=== PATIENT | female | born 1985 ===

== ENCOUNTER 2017-05-22 12:20 | Inpatient (IN) | payer SELFPAY ==
--- NOTE | 2017-05-22 12:35 | ED PDOC ---
HPI: Abdomen Time Seen by Provider: 05/22/17 12:35 Chief Complaint (Nursing): Abdominal Pain Chief Complaint (Provider): abdominal pain History Per: Patient Additional Complaint(s): 32 year old female with history of elevate triglycerides presents to ED with upper abd pain and nausea that started this morning. Patient denies any vomiting or diarrhea. She states she had tea and fruit this morning and developed pain and nausea soon after. Patient denies any chest pain, SOB or STANLEY , no fever or chills. She rates current pain as 7/10. Patient reports history of pancreatitis in the past. She denies any etoh use. Past Medical History Reviewed: Historical Data, Nursing Documentation, Vital Signs Vital Signs: Last Vital Signs Temp 99.2 F 05/23/17 12:52 Pulse 105 H 05/23/17 14:00 Resp 98 H 05/23/17 14:00 BP 108/65 05/23/17 14:00 Pulse Ox 100 05/23/17 14:25 - Medical History PMH: Back Problems, Hyperlipidemia, Pancreatitis - Surgical History Surgical History: (x 2) - Family History Family History: States: No Known Family Hx - Living Arrangements Living Arrangements: With Family - Social History Current smoker - smoking cessation education provided: No Alcohol: None Drugs: Denies - Home Medications Home Medications: Ambulatory Orders Medication Instructions Recorded Gemfibrozil [Gemfibrozil] 600 mg PO BID 05/22/17 [place]-3 Fatty Acids/Fish Oil 1 cap PO BID 05/22/17 [[place]-3 1,000 mg Softgel] - Allergies Allergies/Adverse Reactions: Allergies Allergy/AdvReac Type Severity Reaction Status Date / Time No Known Allergies Allergy Verified 07/04/14 16:48 Review of Systems ROS Statement: Except As Marked, All Systems Reviewed And Found Negative Constitutional: Negative for: Fever, Chills Cardiovascular: Negative for: Chest Pain Respiratory: Negative for: Cough Gastrointestinal: Positive for: Nausea, Abdominal Pain. Negative for: Vomiting , Diarrhea, Constipation Genitourinary Female: Negative for: Dysuria Physical Exam - Reviewed Nursing Documentation Reviewed: Yes Vital Signs Reviewed: Yes - Physical Exam Appears: Positive for: Well, Non-toxic, No Acute Distress Skin: Negative for: Rash Eye Exam: Positive for: Normal appearance Cardiovascular/Chest: Positive for: Regular Rate, Rhythm Respiratory: Positive for: Normal Breath Sounds Gastrointestinal/Abdominal: Positive for: Soft, Tenderness (epigastric, RUQ). Negative for: Distended, Guarding, Rebound Back: Negative for: L CVA Tenderness, R CVA Tenderness Extremity: Positive for: Normal ROM. Negative for: Pedal Edema Neurologic/Psych: Positive for: Alert, Oriented - Laboratory Results Result Diagrams: 05/23/17 05:00 05/23/17 05:00 Urine POC: Negative Urine dip results: Negative for: Leukocyte Esterase, Blood, Nitrate, Ketones, Glucose, Bilirubin, Protein - ECG Interpretation Of ECG: NSR 96 bpm, no acute finding, reviewed by PA and ED attending. O2 Sat by Pulse Oximetry: 100 Pulse Ox Interpretation: Normal - Other Rad Abd US X-Ray: Read By Radiologist X-Ray Interpretation: Fatty liver Medical Decision Making Medical Decision Makin32 year old with abd pain and nausea Plan: CBC CMP Lipase Urine test and dip IVF IV zofran IV toradol Abd US K is elevated at 5.5, sample hemolyzed, repeat ordered, repeat is 6.0. Lab did not inform ED that second sample was also hemolyzed. 3rd K was ordered and confirmed at 5.4, not hemolyzed. Patient was treated for hyperkalemia by Dr. Jeffrey, ED attending. Lipase is 3087 consistent with pancreatitis. PMD is [facility], case was d/w family practice resident, patient will be admitted to telemetry. Patient is aware of and agrees with admission. CT abd and pelvis with oral and IV contrast ordered. Case was d/w Dr. Davila GI conveyor technician who will see patient while she is admitted. Disposition - Clinical Impression Clinical Impression: Pancreatitis, Hyperkalemia - Patient ED Disposition Is Patient to be Admitted: Yes - Disposition Disposition Time: 14:28 Condition: GUARDED - Pt Status Changed To: Hospital Disposition Of: Inpatient - Admit Certification Admit to Inpatient:: After my assessment, the patient will require hospitalization for at least two midnights. This is because of the severity of symptoms shown, intensity of services needed, and/or the medical risk in this patient being treated as an outpatient. - POA Present On Arrival: None Results - Lab Results Lab Results: 05/22/17 05/22/17 05/22/17 14:30 14:30 13:25 WBC 17.4 H D RBC 4.43 Hgb 12.9 Hct 35.5 MCV 80.2 L D MCH 29.1 MCHC 36.3 RDW 15.0 H Plt Count 257 MPV 11.6 Neut % (Auto) 85.5 H Lymph % (Auto) 9.1 L [place] % (Auto) 4.4 Eos % (Auto) 0.5 Baso % (Auto) 0.5 Neut # 14.9 H Lymph # 1.6 [place] # 0.8 Eos # 0.1 Baso # 0.1 Neutrophils % (Manual) 84 H Band Neutrophils % 1 Lymphocytes % (Manual) 8 L Monocytes % (Manual) 6 Eosinophils % (Manual) 1 Platelet Estimate Normal Hypochromasia (manual) Slight Anisocytosis (manual) Slight Microcytosis (manual) Slight Sodium 133 134 Potassium 6.0 H 5.5 H Chloride 104 103 Carbon Dioxide 19 L 20 L Anion Gap 16 17 BUN 9 10 Creatinine 0.4 L 0.4 L Est GFR ( Amer) > 60 > 60 Est GFR (Non-Af Amer) > 60 > 60 Random Glucose 100 107 H Calcium 7.6 L 8.3 L Total Bilirubin 2.5 H 2.2 H AST 74 H 67 H D ALT < 6 L 7 L D Alkaline Phosphatase 77 82 Total Protein 8.8 H 9.0 H Albumin 4.7 4.7 Globulin 4.2 H 4.3 H Albumin/Globulin Ratio 1.1 1.1 Lipase 3087 H
[2017-05-22] MEDS ORDERED: Sodium Chloride 0.9% 1,000 ML IV STA ×2 (12:44→15:26)
[2017-05-22] MEDS ORDERED: Alum-Mag Hydrox-Simethicone Susp (30 mL) PO STA (12:45)
[2017-05-22 13:43] LABS: ALB/GLOB RATIO 1.1 (1.0-2.1); ALKALINE PHOSPHATASE 82 U/L (38-126); AST/SGOT 67 U/L (14-36); BILIRUBIN,TOTAL 2.2 mg/dl (0.2-1.3); BLOOD UREA NITROGEN 10 mg/dl (7-17); CALCIUM 8.3 mg/dL (8.4-10.2); CARBON DIOXIDE 20 mmol/L (22-30); CHLORIDE 103 mmol/L (98-107); GFR AFRICAN-AMERICAN > 60; GLUCOSE,RANDOM 107 mg/dL (65-105); POTASSIUM 5.5 MMOL/L (3.6-5.0); SODIUM 134 mmol/l (132-148)
[2017-05-22 13:51] LABS: LIPASE 3087 U/L (23-300)
[2017-05-22 14:39] LABS: ALT/SGPT 7 U/L (9-52)
[2017-05-22 14:41] LABS: BASO # 0.1 K/uL (0.0-0.2); BASO % 0.5 % (0.0-2.0); EOS # 0.1 K/uL (0.0-0.7); EOS % 0.5 % (0.0-4.0); HEMATOCRIT 35.5 % (34.0-47.0); LYMPH # 1.6 K/uL (1.0-4.3); LYMPH % 9.1 % (20.0-40.0); MEAN CELL VOLUME 80.2 fl (81.0-99.0); MEAN CORPUSCULAR HEMOGLOBIN 29.1 pg (27.0-31.0); MEAN CORPUSCULAR HGB CONC 36.3 g/dL (33.0-37.0); MEAN PLATELET VOLUME 11.6 fl (7.2-11.7); MONO # 0.8 K/uL (0.0-0.8); MONO % 4.4 % (0.0-10.0); NEUT # 14.9 K/uL (1.8-7.0); NEUT % 85.5 % (50.0-75.0); NRBC % 0.1 % (0.0-0.0); PLATELET COUNT 257 K/uL (130-400); WHITE BLOOD COUNT 17.4 K/uL (4.8-10.8)
[2017-05-22 15:00] LABS: ALB/GLOB RATIO 1.1 (1.0-2.1); ALKALINE PHOSPHATASE 77 U/L (38-126); AST/SGOT 74 U/L (14-36); BILIRUBIN,TOTAL 2.5 mg/dl (0.2-1.3); BLOOD UREA NITROGEN 9 mg/dl (7-17); CALCIUM 7.6 mg/dL (8.4-10.2); CARBON DIOXIDE 19 mmol/L (22-30); CHLORIDE 104 mmol/L (98-107); GFR AFRICAN-AMERICAN > 60; GLUCOSE,RANDOM 100 mg/dL (65-105); SODIUM 133 mmol/l (132-148); TOTAL PROTEIN 8.8 G/DL (6.3-8.2)
[2017-05-22 15:16] LABS: ALT/SGPT < 6 U/L (9-52)
[2017-05-22] MEDS ORDERED: Sod Polystyrene Sulf 15 gm/60 ml Oral Susp PO STA (15:25)
[2017-05-22] MEDS ORDERED: Dextrose 50% SYRINGE Inj (50 ml) IVP ONE (15:25)
[2017-05-22] MEDS ORDERED: Insulin Regular 100 units/ml IV STA (15:25)
[2017-05-22] MEDS ORDERED: Albuterol 0.083% Inhal Sol (2.5 mg/3 mL) UD INH STA (15:26)
--- NOTE | 2017-05-22 15:32 | US ---
HISTORY: upper abd pain, nausea COMPARISON: None. TECHNIQUE: Sonographic evaluation of the abdomen. FINDINGS: LIVER: Measures approximately 17.2 cm in CC dimension. . N smooth contour though increased echogenicity of the liver parenchyma consistent with fatty infiltration however other infiltrative hepatocellular disease process not completely excluded. . . No mass. No intrahepatic bile duct dilatation. GALLBLADDER: Unremarkable. No gallstones. COMMON BILE DUCT: Measures 3.6 mm. No stones. No dilatation. PANCREAS: The pancreatic tail is incompletely visualized due to body habitus and bowel gas however the visualized portions of the pancreas appear grossly unremarkable. . RIGHT KIDNEY: Measures approximately 10.4 x 5.7 x 4.4cm. Normal echogenicity. No calculus, mass, or hydronephrosis. LEFT KIDNEY: Measures approximately 9.9 x 5.2 x 5.7cm. Normal echogenicity. No calculus, mass, or hydronephrosis. SPLEEN: Normal in size measuring approximately 9.7 . Normal. Tiny d contour. No mass. AORTA: No aneurysmal dilatation. IVC: Unremarkable. OTHER FINDINGS: None. IMPRESSION: Findings suggest mild fatty hepatic infiltration however other infiltrative hepatocellular disease process not excluded
[2017-05-22] MEDS ORDERED: Sod Polystyrene Sulf 15 gm/60 ml Oral Susp ONE (15:45)
[2017-05-22] MEDS ORDERED: Dextrose 50% SYRINGE Inj (50 ml) ONE (15:45)
[2017-05-22] MEDS ORDERED: Albuterol 0.083% Inhal Sol (2.5 mg/3 mL) UD ONE (15:45)
[2017-05-22] MEDS ORDERED: Insulin Regular 100 units/ml ONE (15:46)
[2017-05-22] MEDS ORDERED: Iohexol 240 (50 ml) PO ONE (16:33)
[2017-05-22] MEDS ORDERED: Sodium Chloride 0.9% 1,000 ML IV SCH ×2 (16:45)
[2017-05-22 17:05] LABS: ALCOHOL SERUM < 10 mg/dl (0-10); CHOLESTEROL 261 mg/dL (0-199)
[2017-05-22 17:11] LABS: POTASSIUM 5.4 MMOL/L (3.6-5.0)
--- NOTE | 2017-05-22 17:16 | CP.PCM.HP ---
History of Present Illness - History of Present Illness History of Present Illness: 32 year old female with hx of hypertriglyceridemia presented for abdominal pain since this 8:00AM this morning, nausea for past 3 days. Reports severe abdominal pain midepigastric pain that radiates to left flank. Pain began after she drank some tea. She had one episode of vomiting in the ER after PO contrast was administered. She reports this has happened in the past. She was previously being treated for her HLD with fenofibrate, but patient discontinued medication due to GI upset and has been taking only omega 3. No other complaints. She has family bedside. Denies family hx of HLD. She reports hx of irregular menses, LMP beginning of February. PMH: Hypertriglyceridemia x 15 years Medications: [place]-3 Allergies: NKDA Social: denies smoking, etoh, illicit drug use Surgical hx: x 2 [employer]: LMP beginning of February, 1 male sexual partner. Uses condoms for contraception. ED Course: VS: T:99.1, HR: 86, BP:144/91, O2:100 on RA CBC: 17.4 > 12.9 / 35.5 < 257 CMP: K+: 6.0, repeat 5.4, AST/ALT: 74/<6 Calcium: 7.6 Lipase :3087 Triglycerides: 2103 Abd ultrasound: mild hepatic fatty infiltration CT ABD/PELVIS pending NS x 2L boluses Albuterol, insulin 5 units, kayexelate toradol, morphine Present on Admission - Present on Admission Any Indicators Present on Admission: No Review of Systems - Constitutional Constitutional: absent: Chills, Fever, Headache, Weight Loss - EENT Eyes: absent: Change in Vision, Discharge, Pain - Cardiovascular Cardiovascular: absent: Chest Pain, Diaphoresis, Dyspnea, Edema, Orthopnea, Palpitations, Pedal Edema - Respiratory Respiratory: absent: Cough, Dyspnea - Gastrointestinal Gastrointestinal: Abdominal Pain, Nausea, Vomiting. absent: Constipation, Diarrhea, Hematemesis - Genitourinary Genitourinary: Flank Pain (left sided). absent: Difficulty Urinating, Dysuria Past Patient History - Infectious Disease Hx of Infectious Diseases: None - Tetanus Immunizations Tetanus Immunization: Unknown - Past Medical History & Family History Past Medical History?: Yes - Past Social History Alcohol: None Drugs: Denies - CARDIAC Hx Cardiac Disorders: Yes (high cholesterol) - PULMONARY Hx Respiratory Disorders: No - NEUROLOGICAL Hx Neurological Disorder: No - HEENT Hx HEENT Problems: No - RENAL Hx Chronic Kidney Disease: No - ENDOCRINE/METABOLIC Hx Endocrine Disorders: No - HEMATOLOGICAL/ONCOLOGICAL Hx Blood Disorders: No - INTEGUMENTARY Hx Dermatological Problems: No - MUSCULOSKELETAL/RHEUMATOLOGICAL Hx Musculoskeletal Disorders: No Hx Falls: No - GASTROINTESTINAL Hx Pancreatitis: Yes - GENITOURINARY/GYNECOLOGICAL Hx Genitourinary Disorders: No - PSYCHIATRIC Hx Psychophysiologic Disorder: No Hx Substance Use: No - SURGICAL HISTORY Hx Section: Yes (x2) - ANESTHESIA Hx Anesthesia: Yes Hx Anesthesia Reactions: No Hx Malignant Hyperthermia: No Meds Allergies/Adverse Reactions: Allergies Allergy/AdvReac Type Severity Reaction Status Date / Time No Known Allergies Allergy Verified 07/04/14 16:48 Physical Exam - Constitutional Appears: In Acute Distress (mild distress secondary to pain) - Head Exam Head Exam: ATRAUMATIC, NORMAL INSPECTION, NORMOCEPHALIC - Eye Exam Eye Exam: Scleral icterus (mild) - ENT Exam ENT Exam: Mucous Membranes Moist, Normal Exam - Neck Exam Neck exam: Positive for: Normal Inspection - Respiratory Exam Respiratory Exam: Clear to Auscultation Bilateral, NORMAL BREATHING PATTERN - Cardiovascular Exam Cardiovascular Exam: REGULAR RHYTHM, +S1, +S2. absent: Tachycardia - GI/Abdominal Exam GI & Abdominal Exam: Diminished Bowel Sounds, Guarding, Normal Bowel Sounds, Soft, Tenderness (midepigastric and left upper quadrant). absent: Distended, Rebound - Extremities Exam Extremities exam: Negative for: pedal edema, tenderness - Neurological Exam Neurological exam: Alert, CN II-XII Intact, Oriented x3 - Psychiatric Exam Psychiatric exam: Normal Affect, Normal Mood - Skin Skin Exam: Dry, Intact, Normal Color Results - Vital Signs Recent Vital Signs: Last Vital Signs Temp 99.1 F 05/22/17 16:53 Pulse 86 05/22/17 16:53 Resp 18 05/22/17 16:53 BP 144/91 H 05/22/17 16:53 Pulse Ox 100 05/22/17 13:23 - Labs Result Diagrams: 05/22/17 14:30 05/22/17 16:45 Labs: Laboratory Results - last 24 hr 05/22/17 05/22/17 05/22/17 13:25 14:30 14:30 WBC 17.4 H D RBC 4.43 Hgb 12.9 Hct 35.5 MCV 80.2 L D MCH 29.1 MCHC 36.3 RDW 15.0 H Plt Count 257 MPV 11.6 Neut % (Auto) 85.5 H Lymph % (Auto) 9.1 L [place] % (Auto) 4.4 Eos % (Auto) 0.5 Baso % (Auto) 0.5 Neut # 14.9 H Lymph # 1.6 [place] # 0.8 Eos # 0.1 Baso # 0.1 Sodium 134 133 Potassium 5.5 H 6.0 H Chloride 103 104 Carbon Dioxide 20 L 19 L Anion Gap 17 16 BUN 10 9 Creatinine 0.4 L 0.4 L Est GFR ( Amer) > 60 > 60 Est GFR (Non-Af Amer) > 60 > 60 Random Glucose 107 H 100 Calcium 8.3 L 7.6 L Total Bilirubin 2.2 H 2.5 H AST 67 H D 74 H ALT 7 L D < 6 L Alkaline Phosphatase 82 77 Total Protein 9.0 H 8.8 H Albumin 4.7 4.7 Globulin 4.3 H 4.2 H Albumin/Globulin Ratio 1.1 1.1 Lipase 3087 H Assessment & Plan (1) Abdominal pain Assessment and Plan: 32 year old female with hypertriglyceidemia admitted for abdominal pain with PO intolerance likely 2' to acute pancreatitis. Patient is afebrile, has leukocytosis of 17.4 with elevated lipase, >3000 and triglycerides > 2100. Will continue with aggressive IVF. Monitor electrolytes closely. GI consulted: Dr. Davila. Brandon critera on admission : 1 BISAP score: 0 [place] II: pending lactate -NPO -IVF -VBG ordered -Morphine for pain -zofran for nausea -f/u abdomen/pelvis ct with po & iv contrast Status: Acute (2) Hypertriglyceridemia Assessment and Plan: likely etiology of acute pancreatitis -will need PO treatment once pancreatitis resolves to prevent future episode and lower risk of CAD -dietary referral Status: Chronic Priority: High (3) Overweight (BMI 25.0-29.9) Assessment and Plan: dietary education, lifestyle modification Status: Chronic (4) DVT prophylaxis Assessment and Plan: lovenox 40mg Status: Acute
[2017-05-22 17:28] LABS: EOSINOPHIL 1 % (0-7); NEUTROPHIL 84 % (42-75); TOTAL CELLS COUNTED 100
[2017-05-22] MEDS: Sodium Chloride 0.9% 1,000 ML IV SCH ×2 (18:06→22:30)
[2017-05-22] MEDS ORDERED: Iohexol 240 (50 ml) ONE (18:26)
[2017-05-22] MEDS ORDERED: Sodium Chloride 0.9% 50 ML IV ONE (19:39)
[2017-05-22] MEDS ORDERED: Iohexol 300 100 ML IJ ONE (19:39)
--- NOTE | 2017-05-22 21:04 | CT ---
EXAM: CT Abdomen and Pelvis With Intravenous Contrast CLINICAL HISTORY: 32 years old, female; Pain; Abdominal pain; Localized; Upper; Prior surgery; Surgery date: 6+ months; Surgery type: 2 c-sections; Patient HX: HX of pancreatitis; Additional info: Abd pain, elevated lipase. Sent copy of labs TECHNIQUE: Axial computed tomography images of the abdomen and pelvis with intravenous contrast. All CT scans at this facility use one or more dose reduction techniques, viz.: automated exposure control; ma/kV adjustment per patient size (including targeted exams where dose is matched to indication; i.e. head); or iterative reconstruction technique. Coronal and sagittal reformatted images were created and reviewed. CONTRAST: 90 mL of [id number] administered intravenously. COMPARISON: No relevant prior studies available. FINDINGS: Lower thorax: Mild atelectasis. ABDOMEN: Liver: Fatty infiltration. Gallbladder and bile ducts: No calcified stones. No ductal dilation. Pancreas: Moderate stranding/fluid about pancreas. No definite pancreatic necrosis. No ductal dilation. Spleen: No splenomegaly. Adrenals: No mass. Kidneys and ureters: No mass. No hydronephrosis. Stomach and bowel: No definite mural thickening. No obstruction. Appendix: Normal caliber. No inflammation. PELVIS: Bladder: Unremarkable. Reproductive: Unremarkable as visualized. ABDOMEN and PELVIS: Intraperitoneal space: Fluid extension along stomach, LEFT paracolic gutter without discrete peripherally enhancing collection. Trace free fluid within pelvis. No free air. Bones/joints: No acute fracture. Soft tissues: Unremarkable. Vasculature: Patent splenic artery and vein. No aneurysm. Lymph nodes: No pathologically enlarged lymph nodes. IMPRESSION: 1. Acute pancreatitis. 2. Incidental/non-acute findings are described above.
[2017-05-22 21:52] LABS: VENOUS BLOOD GAS BASE EXCESS -0.4 mmol/L (0.0-2.0); VENOUS BLOOD GAS PCO2 38 mmHg (40-60); VENOUS BLOOD PH 7.41 (7.32-7.43)
[2017-05-23] MEDS: Sodium Chloride 0.9% 1,000 ML IV SCH ×2 (01:01→04:37)
--- NOTE | 2017-05-23 06:41 | CP.PCM.PN ---
Subjective - Date & Time of Evaluation Date of Evaluation: 05/23/17 Time of Evaluation: 06:45 - Subjective Subjective: Overnight: patient continued to have nausea, reports 1 episode of vomiting. Patient sleeping upon entry to room. Still has moderate to severe pain and nausea. She denies fever/chills, chest pain, dyspnea, diarrhea or pedal edema. She is currently on NS @ 300cc/hr, will d/c NS and start D5/LR @ 300cc/hr with IV insulin drip. Case d/w lock stitch channeler. Will transfer to ICU. GI and endocrine consult. Objective - Vital Signs/Intake and Output Vital Signs (last 24 hours): Temp Pulse Resp BP Pulse Ox 98.9 F 99 H 18 99/66 L 97 05/23/17 05:00 05/23/17 05:00 05/23/17 05:00 05/23/17 05:00 05/23/17 05:00 - Medications Medications: Current Medications Acetaminophen (Tylenol 650 Mg Supp) 650 mg WI Q6 PRN PRN Reason: Fever >100.4 F Enoxaparin Sodium (Lovenox) 40 mg SC DAILY KATEY PRN Reason: Protocol Famotidine (Pepcid) 20 mg PO BID KATEY Sodium Chloride (Sodium Chloride 0.9%) 1,000 mls @ 999 mls/hr IV .Q1H1M [facility] Stop: 05/23/17 16:39 Sodium Chloride (Sodium Chloride 0.9%) 1,000 mls @ 300 mls/hr IV .Q3H20M [facility] Stop: 05/23/17 16:39 Last Admin: 05/23/17 04:37 Dose: 300 mls/hr Morphine Sulfate (Morphine) 2 mg IVP Q4 PRN PRN Reason: Pain, moderate (4-7) Morphine Sulfate (Morphine) 4 mg IVP Q4 PRN PRN Reason: Pain, severe (8-10) Last Admin: 05/22/17 22:26 Dose: 4 mg Ondansetron HCl (Zofran Inj) 4 mg IVP Q6 PRN PRN Reason: Nausea/Vomiting Last Admin: 05/23/17 01:50 Dose: 4 mg - Labs Labs: Most Recent Lab Values WBC 13.4 K/uL (4.8-10.8) H 05/23/17 05:00 RBC 4.15 Mil/uL (3.80-5.20) 05/23/17 05:00 Hgb 10.9 g/dL (12.0-16.0) L D 05/23/17 05:00 Hct 33.1 % (34.0-47.0) L 05/23/17 05:00 MCV 79.8 fl (81.0-99.0) L 05/23/17 05:00 MCH 26.3 pg (27.0-31.0) L 05/23/17 05:00 MCHC 32.9 g/dL (33.0-37.0) L 05/23/17 05:00 RDW 15.1 % (11.5-14.5) H 05/23/17 05:00 Plt Count 195 K/uL (130-400) 05/23/17 05:00 MPV 11.6 fl (7.2-11.7) 05/22/17 14:30 Neut % (Auto) 85.5 % (50.0-75.0) H 05/22/17 14:30 Lymph % (Auto) 9.1 % (20.0-40.0) L 05/22/17 14:30 [place] % (Auto) 4.4 % (0.0-10.0) 05/22/17 14:30 Eos % (Auto) 0.5 % (0.0-4.0) 05/22/17 14:30 Baso % (Auto) 0.5 % (0.0-2.0) 05/22/17 14:30 Neut # 14.9 K/uL (1.8-7.0) H 05/22/17 14:30 Lymph # 1.6 K/uL (1.0-4.3) 05/22/17 14:30 [place] # 0.8 K/uL (0.0-0.8) 05/22/17 14:30 Eos # 0.1 K/uL (0.0-0.7) 05/22/17 14:30 Baso # 0.1 K/uL (0.0-0.2) 05/22/17 14:30 Neutrophils % (Manual) 84 % (42-75) H 05/22/17 14:30 Band Neutrophils % 1 % (0-2) 05/22/17 14:30 Lymphocytes % (Manual) 8 % (20-50) L 05/22/17 14:30 Monocytes % (Manual) 6 % (0-10) 05/22/17 14:30 Eosinophils % (Manual) 1 % (0-7) 05/22/17 14:30 Platelet Estimate Normal (NORMAL) 05/22/17 14:30 Hypochromasia (manual) Slight 05/22/17 14:30 Anisocytosis (manual) Slight 05/22/17 14:30 Microcytosis (manual) Slight 05/22/17 14:30 pO2 48 mm/Hg (30-55) 05/22/17 18:29 VBG pH 7.41 (7.32-7.43) 05/22/17 18:29 VBG pCO2 38 mmHg (40-60) L 05/22/17 18:29 VBG HCO3 24.2 mmol/L 05/22/17 18:29 VBG Total CO2 25.3 mmol/L (22-28) 05/22/17 18:29 VBG O2 Sat (Calc) 88.3 % (40-65) H 05/22/17 18:29 VBG Base Excess -0.4 mmol/L (0.0-2.0) L 05/22/17 18:29 VBG Potassium 3.3 mmol/L (3.6-5.2) L 05/22/17 18:29 Sodium 131.0 mmol/L (132-148) L 05/22/17 18:29 Chloride 103.0 mmol/L (98-107) 05/22/17 18:29 Glucose 122 mg/dL (65-105) H 05/22/17 18:29 Lactate 1.4 mmol/L (0.7-2.1) 05/22/17 18:29 FiO2 21.0 % 05/22/17 18:29 Sodium 130 mmol/l (132-148) L 05/23/17 05:00 Potassium 3.4 MMOL/L (3.6-5.0) L 05/23/17 05:00 Chloride 104 mmol/L (98-107) 05/23/17 05:00 Carbon Dioxide 20 mmol/L (22-30) L 05/23/17 05:00 Anion Gap 9 (10-20) L 05/23/17 05:00 BUN 5 mg/dl (7-17) L 05/23/17 05:00 Creatinine 0.4 mg/dL (0.7-1.2) L 05/23/17 05:00 Est GFR ( Amer) > 60 05/23/17 05:00 Est GFR (Non-Af Amer) > 60 05/23/17 05:00 POC Glucose (mg/dL) 91 mg/dL (65-110) 05/23/17 10:06 Random Glucose 125 mg/dL (65-105) H 05/23/17 05:00 Calcium 6.6 mg/dL (8.4-10.2) L 05/23/17 05:00 Total Bilirubin 0.8 mg/dl (0.2-1.3) 05/23/17 05:00 AST 18 U/L (14-36) 05/23/17 05:00 ALT 24 U/L (9-52) 05/23/17 05:00 Alkaline Phosphatase 54 U/L (38-126) 05/23/17 05:00 Total Protein 6.3 G/DL (6.3-8.2) 05/23/17 05:00 Albumin 3.1 g/dL (3.5-5.0) L D 05/23/17 05:00 Globulin 3.2 gm/dL (2.2-3.9) 05/23/17 05:00 Albumin/Globulin Ratio 1.0 (1.0-2.1) 05/23/17 05:00 Triglycerides 2103 mg/DL (0-149) H 05/22/17 16:45 Cholesterol 261 mg/dL (0-199) H 05/22/17 16:45 LDL Cholesterol Direct 33 mg/dL (0-129) 05/22/17 16:45 HDL Cholesterol 17 MG/DL (30-70) L 05/22/17 16:45 Lipase 3087 U/L (23-300) H 05/22/17 13:25 Venous Blood Potassium 3.3 mmol/L (3.6-5.2) L 05/22/17 18:29 Alcohol, Quantitative < 10 mg/dl (0-10) 05/22/17 16:45 - Constitutional Appears: In Acute Distress (moderate distress 2' to pain) - Head Exam Head Exam: ATRAUMATIC, NORMAL INSPECTION, NORMOCEPHALIC - Eye Exam Eye Exam: EOMI, Normal appearance, PERRL - ENT Exam ENT Exam: Mucous Membranes Moist, Normal Exam - Respiratory Exam Respiratory Exam: Clear to Ausculation Bilateral - Cardiovascular Exam Cardiovascular Exam: REGULAR RHYTHM, +S1, +S2. absent: Murmur - GI/Abdominal Exam GI & Abdominal Exam: Soft, Tenderness (left upper quadrant/flank), Diminished Bowel Sounds. absent: Distended, Guarding - Extremities Exam Extremities Exam: Full ROM. absent: Pedal Edema - Neurological Exam Neurological Exam: Alert, Awake, CN II-XII Intact, Oriented x3. absent: Motor Sensory Deficit - Psychiatric Exam Psychiatric exam: Normal Affect, Normal Mood - Skin Skin Exam: Dry, Intact Assessment and Plan (1) Abdominal pain Assessment & Plan: 32 year old female with hypertriglyceidemia admitted for abdominal pain with PO intolerance likely 2' to acute pancreatitis. Patient is remains afebrile, leukocytosis trending down. On admission : Lipase > 3000 and triglycerides > 2100. Continue with agressive ivf and start insulin drip. Patient is hyponatremic, hypokalemic, hypocalcemic. Will get EKG, d/c NS start d5/LR. GI consulted: Dr. Davila. Endorcrine consulted: Dr. Sánchez Taylor critera on admission : 1 BISAP score: 0 [place] II: 6 Plan: -NPO & IVF (D5/LR @300cc/hr), insulin drip -Morphine for pain -zofran for nausea -transfer to ICU -trend TG, monitor blood glucose closely, monitor electrolytes Status: Acute (2) Hypertriglyceridemia Assessment & Plan: etiology of acute pancreatitis -insulin drip with D5/LR to further decrease TG, monitor closely -start fibrate and clear liquid diet as per GI -dietary referral Status: Chronic (3) Overweight (BMI 25.0-29.9) Assessment & Plan: dietary education, lifestyle modification Status: Chronic (4) Transaminitis Status: Resolved (5) Hypokalemia Status: Acute (6) Hypocalcemia Status: Acute (7) Hyponatremia Status: Acute (8) DVT prophylaxis Assessment & Plan: lovenox 40mg Status: Acute
[2017-05-23 07:11] LABS: ALKALINE PHOSPHATASE 54 U/L (38-126); ALT/SGPT 24 U/L (9-52); AST/SGOT 18 U/L (14-36); BILIRUBIN,TOTAL 0.8 mg/dl (0.2-1.3); BLOOD UREA NITROGEN 5 mg/dl (7-17); CALCIUM 6.6 mg/dL (8.4-10.2); CARBON DIOXIDE 20 mmol/L (22-30); CHLORIDE 104 mmol/L (98-107); GFR AFRICAN-AMERICAN > 60; GLUCOSE,RANDOM 125 mg/dL (65-105); HEMATOCRIT 33.1 % (34.0-47.0); MEAN CELL VOLUME 79.8 fl (81.0-99.0); MEAN CORPUSCULAR HEMOGLOBIN 26.3 pg (27.0-31.0); MEAN CORPUSCULAR HGB CONC 32.9 g/dL (33.0-37.0); POTASSIUM 3.4 MMOL/L (3.6-5.0); RED CELL DISTRIBUTION WIDTH 15.1 % (11.5-14.5); SODIUM 130 mmol/l (132-148); TOTAL PROTEIN 6.3 G/DL (6.3-8.2); WHITE BLOOD COUNT 13.4 K/uL (4.8-10.8)
[2017-05-23] MEDS ORDERED: Lactated Ringer's 1,000 ML IV SCH (07:30)
[2017-05-23] MEDS: Enoxaparin 40 mg Syringe SC SCH (08:50)
--- NOTE | 2017-05-23 09:04 | CP.PCM.CON ---
<Dianna Monet - Last Filed: 05/23/17 09:43> History of Present Illness - History of Present Illness History of Present Illness: GI Fellow PGY4 Consult Note This is a 32yF with a pmhx of hypertriglyceridemia induced pancreatitis pw co nausea for three days and epigastric abdominal pain that started yesterday and was radiating through mid-back and down to left flank. Pt had 3 episodes of emesis since admission and continues to have significant abdominal pain 06/02 requiring pain medication for relief. Pt reports this is her third hospital admission for acute pancreatitis with prior episodes in 2001 and 2013. She was prescribed fenofibrate in 2013 and reports she was taking it until one month ago and is only on omega 3 supplement because taking fenobrite on an empty stomach was causing her abdominal discomfort and pain. Also there is a family hx of hypertriglyceridemia induced pancreatitis in her mother. In the ER pt was found to have a lipase [address] A/P showing moderate pancreatic standing, fluid along stomach and pericolic gutters with no signs of cyst or necrosis. Pt was given IVF 2L NS Bolus and started on LR at 300cc/hr. Pt reports pain is slightly improved since admission. Pt denies any hx of alcohol abuse, gallstones , or any autoimmune pathology. Pt has not had prior EGD/Colonoscopy with no other GI complaints. ROS: A 12pt ROS was obtained and was negative except as above PmHx: As stated in HPI PsHx: C-sections SHx: negative for tobacco, ETOH, or illicit drugs FHx: hypertriglyceridemia induced pancreatitis Past Patient History - Infectious Disease Hx of Infectious Diseases: None - Tetanus Immunizations Tetanus Immunization: Unknown - Past Medical History & Family History Past Medical History?: Yes - Past Social History Smoking Status: Never Smoked - CARDIAC Hx Cardiac Disorders: Yes (high cholesterol) Hx Hypercholesterolemia: Yes - PULMONARY Hx Respiratory Disorders: No - NEUROLOGICAL Hx Neurological Disorder: No - HEENT Hx HEENT Problems: No - RENAL Hx Chronic Kidney Disease: No - ENDOCRINE/METABOLIC Hx Endocrine Disorders: No - HEMATOLOGICAL/ONCOLOGICAL Hx Blood Disorders: No - INTEGUMENTARY Hx Dermatological Problems: No - MUSCULOSKELETAL/RHEUMATOLOGICAL Hx Musculoskeletal Disorders: Yes Hx Falls: No Other/Comment: back problems - GASTROINTESTINAL Hx Gastrointestinal Disorders: Yes Hx Pancreatitis: Yes - GENITOURINARY/GYNECOLOGICAL Hx Genitourinary Disorders: No - PSYCHIATRIC Hx Psychophysiologic Disorder: No Hx Substance Use: No - SURGICAL HISTORY Hx Surgeries: Yes Hx Section: Yes (x2) - ANESTHESIA Hx Anesthesia: Yes Hx Anesthesia Reactions: No Hx Malignant Hyperthermia: No Meds Allergies/Adverse Reactions: Allergies Allergy/AdvReac Type Severity Reaction Status Date / Time No Known Allergies Allergy Verified 07/04/14 16:48 - Medications Medications: Current Medications Acetaminophen (Tylenol 650 Mg Supp) 650 mg NE Q6 PRN PRN Reason: Fever >100.4 F Enoxaparin Sodium (Lovenox) 40 mg SC DAILY KATEY PRN Reason: Protocol Last Admin: 05/23/17 08:50 Dose: 40 mg Famotidine (Pepcid) 20 mg IVP DAILY [facility] Lactated Ringer's (Lactated Ringer's) 1,000 mls @ 300 mls/hr IV .Q3H20M KATEY Morphine Sulfate (Morphine) 2 mg IVP Q4 PRN PRN Reason: Pain, moderate (4-7) Morphine Sulfate (Morphine) 4 mg IVP Q4 PRN PRN Reason: Pain, severe (8-10) Last Admin: 05/22/17 22:26 Dose: 4 mg Ondansetron HCl (Zofran Inj) 4 mg IVP Q6 PRN PRN Reason: Nausea/Vomiting Last Admin: 05/23/17 01:50 Dose: 4 mg Physical Exam - Constitutional Appears: Non-toxic, No Acute Distress - Head Exam Head Exam: ATRAUMATIC, NORMAL INSPECTION, NORMOCEPHALIC - Eye Exam Eye Exam: EOMI, Normal appearance, PERRL Pupil Exam: PERRL - ENT Exam ENT Exam: Mucous Membranes Moist - Neck Exam Neck exam: Positive for: Normal Inspection - Respiratory Exam Respiratory Exam: Clear to Auscultation Bilateral, NORMAL BREATHING PATTERN - Cardiovascular Exam Cardiovascular Exam: RRR, +S1, +S2 - GI/Abdominal Exam GI & Abdominal Exam: Normal Bowel Sounds, Soft, Tenderness. absent: Distended, Organomegaly - Rectal Exam Rectal Exam: Deferred - Extremities Exam Extremities exam: Positive for: normal inspection - Back Exam Back exam: NORMAL INSPECTION - Neurological Exam Neurological exam: Alert, Oriented x3 - Psychiatric Exam Psychiatric exam: Normal Affect, Normal Mood - Skin Skin Exam: Dry, Intact, Normal Color, Warm Results - Vital Signs Recent Vital Signs: Last Vital Signs Temp 98 F 05/23/17 08:15 Pulse 90 05/23/17 08:15 Resp 20 05/23/17 08:15 BP 100/64 05/23/17 08:15 Pulse Ox 97 05/23/17 08:15 - Labs Result Diagrams: 05/23/17 05:00 05/23/17 05:00 Labs: Laboratory Results - last 24 hr 05/22/17 05/22/17 05/23/17 16:45 18:29 05:00 WBC 13.4 H RBC 4.15 Hgb 10.9 L D Hct 33.1 L MCV 79.8 L MCH 26.3 L MCHC 32.9 L RDW 15.1 H Plt Count 195 pO2 48 VBG pH 7.41 VBG pCO2 38 L VBG HCO3 24.2 VBG Total CO2 25.3 VBG O2 Sat (Calc) 88.3 H VBG Base Excess -0.4 L VBG Potassium 3.3 L Sodium 131.0 L Chloride 103.0 Glucose 122 H Lactate 1.4 FiO2 21.0 Potassium 5.4 H Carbon Dioxide Anion Gap BUN Creatinine Est GFR ( Amer) Est GFR (Non-Af Amer) Random Glucose Calcium Total Bilirubin AST ALT Alkaline Phosphatase Total Protein Albumin Globulin Albumin/Globulin Ratio Triglycerides 2103 H Cholesterol 261 H LDL Cholesterol Direct 33 HDL Cholesterol 17 L Venous Blood Potassium 3.3 L Alcohol, Quantitative < 10 05/23/17 05:00 WBC RBC Hgb Hct MCV MCH MCHC RDW Plt Count pO2 VBG pH VBG pCO2 VBG HCO3 VBG Total CO2 VBG O2 Sat (Calc) VBG Base Excess VBG Potassium Sodium 130 L Chloride 104 Glucose Lactate FiO2 Potassium 3.4 L Carbon Dioxide 20 L Anion Gap 9 L BUN 5 L Creatinine 0.4 L Est GFR ( Amer) > 60 Est GFR (Non-Af Amer) > 60 Random Glucose 125 H Calcium 6.6 L Total Bilirubin 0.8 AST 18 ALT 24 Alkaline Phosphatase 54 Total Protein 6.3 Albumin 3.1 L D Globulin 3.2 Albumin/Globulin Ratio 1.0 Triglycerides Cholesterol LDL Cholesterol Direct HDL Cholesterol Venous Blood Potassium Alcohol, Quantitative Assessment & Plan - Assessment and Plan (Free Text) Assessment: This is a 32yF pw abdominal pain, nausea and vomiting. 1. Acute Pancreatitis induced by hypertriglyceridemia 2. Hypertriglyceridemia 3. Obesity 4. Dehydration 5. Hypokalemia 6. Transaminitis Plan: -Continue Aggressive IVF hydration with LR at 300cc/hr -BUN/HCT improving after fluid resuscitation, continue to monitor -Transaminitis improved, continue to monitor, no signs of gallstone induced pancreatitis -Start on clear liquid diet -Start fenofibrate and monitor triglyceride levels goal <500 -Recommend Endocrinology consult to start insulin therapy in pt's with hypertriglyceridemia induced acute pancreatitis -Continue pain control and antiemetics prn -Replete electrolytes -Case discussed with primary team resident -Will continue to follow closely <Sanjana Davila MD - Last Filed: 05/23/17 10:42> Meds - Medications Medications: Current Medications Acetaminophen (Tylenol 650 Mg Supp) 650 mg NE Q6 PRN PRN Reason: Fever >100.4 F Dextrose (Dextrose 50% Inj) 0 ml IV STAT PRN; Protocol PRN Reason: Hyglycemia Protocol Dextrose (Glutose 15) 0 gm PO ONCE PRN; Protocol PRN Reason: Hypoglycemia Protocol Enoxaparin Sodium (Lovenox) 40 mg SC DAILY KATEY PRN Reason: Protocol Last Admin: 05/23/17 08:50 Dose: 40 mg Famotidine (Pepcid) 20 mg IVP DAILY KATE[facility] Gemfibrozil (Lopid) 600 mg PO BID KATEY Glucagon (Glucagen Diagnostic Kit) 0 mg IM STAT PRN; Protocol PRN Reason: Hypoglycemia Protocol Dextrose/Lactated Ringer's (Dextrose 5%/Lactated Ringer's) 1,000 mls @ 300 mls/ hr IV .Q3H20M KATEY Stop: 05/24/17 10:05 Insulin Human Regular 100 (units/ Sodium Chloride) 101 mls @ 2.02 mls/hr IV .Q24H KATEY; 2 UNITS/HR PRN Reason: Protocol Morphine Sulfate (Morphine) 2 mg IVP Q4 PRN PRN Reason: Pain, moderate (4-7) Morphine Sulfate (Morphine) 4 mg IVP Q4 PRN PRN Reason: Pain, severe (8-10) Last Admin: 05/22/17 22:26 Dose: 4 mg Ondansetron HCl (Zofran Inj) 4 mg IVP Q6 PRN PRN Reason: Nausea/Vomiting Last Admin: 05/23/17 01:50 Dose: 4 mg Results - Vital Signs Recent Vital Signs: Last Vital Signs Temp 98 F 05/23/17 08:15 Pulse 90 05/23/17 09:00 Resp 20 05/23/17 08:15 BP 100/64 05/23/17 08:15 Pulse Ox 97 05/23/17 08:15 - Labs Result Diagrams: 05/23/17 05:00 05/23/17 05:00 Labs: Laboratory Results - last 24 hr 05/22/17 05/22/17 05/23/17 16:45 18:29 05:00 WBC 13.4 H RBC 4.15 Hgb 10.9 L D Hct 33.1 L MCV 79.8 L MCH 26.3 L MCHC 32.9 L RDW 15.1 H Plt Count 195 pO2 48 VBG pH 7.41 VBG pCO2 38 L VBG HCO3 24.2 VBG Total CO2 25.3 VBG O2 Sat (Calc) 88.3 H VBG Base Excess -0.4 L VBG Potassium 3.3 L Sodium 131.0 L Chloride 103.0 Glucose 122 H Lactate 1.4 FiO2 21.0 Potassium 5.4 H Carbon Dioxide Anion Gap BUN Creatinine Est GFR ( Amer) Est GFR (Non-Af Amer) POC Glucose (mg/dL) Random Glucose Calcium Total Bilirubin AST ALT Alkaline Phosphatase Total Protein Albumin Globulin Albumin/Globulin Ratio Triglycerides 2103 H Cholesterol 261 H LDL Cholesterol Direct 33 HDL Cholesterol 17 L Venous Blood Potassium 3.3 L Alcohol, Quantitative < 10 05/23/17 05/23/17 05:00 10:06 WBC RBC Hgb Hct MCV MCH MCHC RDW Plt Count pO2 VBG pH VBG pCO2 VBG HCO3 VBG Total CO2 VBG O2 Sat (Calc) VBG Base Excess VBG Potassium Sodium 130 L Chloride 104 Glucose Lactate FiO2 Potassium 3.4 L Carbon Dioxide 20 L Anion Gap 9 L BUN 5 L Creatinine 0.4 L Est GFR ( Amer) > 60 Est GFR (Non-Af Amer) > 60 POC Glucose (mg/dL) 91 Random Glucose 125 H Calcium 6.6 L Total Bilirubin 0.8 AST 18 ALT 24 Alkaline Phosphatase 54 Total Protein 6.3 Albumin 3.1 L D Globulin 3.2 Albumin/Globulin Ratio 1.0 Triglycerides Cholesterol LDL Cholesterol Direct HDL Cholesterol Venous Blood Potassium Alcohol, Quantitative Attending/Attestation - Attestation I have personally seen and examined this patient.: Yes I have fully participated in the care of the patient.: Yes I have reviewed all pertinent clinical information: Yes Notes (Text): 05/23/17 10:39 Patient seen and examined with GI fellow at bedside. This is a 32 year old obese F admitted with abdominal pain, nausea and vomiting in setting of acute pancreatitis. Denies alcohol history No gallstones on CT scan. Likely due to hyperTG. This is her third episode. Start gemfibrozil and consider endocrinology consult to start insulin and heparin. Continue Aggressive IVF hydration with LR at 300cc/hr. No biochemical evidence of severe disease. Replete electrolytes. Supportive care with pain control. Start clear liquid diet today
[2017-05-23] MEDS ORDERED: Glucagon Recombinant 1 mg Inj IM PRN (09:07)
[2017-05-23] MEDS ORDERED: Dextrose 50% SYRINGE Inj (50 ml) IV PRN (09:07)
[2017-05-23] MEDS: Dextrose 5%/Lactated Ringer's 1,000 ML IV SCH ×3 (11:15→18:01)
--- NOTE | 2017-05-23 11:58 | CP.CCUPN ---
CCU Subjective - Physician Review Subjective (Free Text): 32F admitted yesterday for recurrent abdominal pain assoc with h/o Hyper TG, found to have acute pancreatitis. Now,. transferred to ICU for intensive IV insulin therapy. She is awake and alert, nondistressed with stable hemodynamics , no recent fever spikes. On IVF with LR at 300ml/hr. Allergies: NKDA Home meds: discontinued gemfibrozil, [place] 3 Fish oil. Other PMSFH: All Nursing and Physician documentation reviewed, and no new pertinent information relevant to current medical problems. MAJOR PROBLEMS: 1. Acute Pancreatitis 2. Uncontrolled Hypertriglyceridemia 3. Hypocalcemia 4. NAFLD PLAN: 1. CTAP and ABD Us studies reviewed. 2. IV insulin drip and supplemental dextrose added to IVFs in attempt to stimulate LPL and lower TG levels. Could stop intensive Insulin therapy once TG levels fall below 500mg/dl. 3. Start PO Fibric acid derivatives as tolerated. 4. Add D5W to LR fluids. 5. Would only supplement Ca levels if cardiac arrhythmia, or tetany evident. Would check and monitor Mag, Phos levels. 6. No abx yet. CCU Objective - Vital Signs / Intake & Output Vital Signs (Last 4 hours): Vital Signs Temp Pulse Resp BP Pulse Ox 05/23/17 09:00 90 05/23/17 08:15 98 F 90 20 100/64 97 - Physical Exam Head: Positive for: Normocephalic Pupils: Positive for: PERRL Extroacular Muscles: Positive for: EOMI Conjunctiva: Positive for: Normal. Negative for: Icteric Mouth: Positive for: Moist Mucous Membranes Neck: Negative for: JVD Respiratory/Chest: Positive for: Clear to Auscultation. Negative for: Accessory Muscle Use Cardiovascular: Positive for: Regular Rate and Rhythm. Negative for: Murmurs, Rub Abdomen: Positive for: Normal Bowel Sounds. Negative for: Distention Lower Extremity: Positive for: NORMAL PULSES. Negative for: Edema, CALF TENDERNESS, Cyanosis Neurological: Positive for: GCS=15, CN II-XII Intact, Motor Func Grossly Intact Skin: Positive for: Warm. Negative for: Rashes - Medications Active Medications: Active Medications Generic Name Dose Route Start Last Admin Trade Name Freq PRN Reason Stop Dose Admin Acetaminophen 650 mg 05/22/17 17:06 Tylenol 650 Mg Supp [place] Q6 PRN Fever >100.4 F Dextrose 0 ml 05/23/17 09:07 Dextrose 50% Inj IV STAT PRN Hyglycemia Protocol Protocol Dextrose 0 gm 05/23/17 09:07 Glutose 15 PO ONCE PRN Hypoglycemia Protocol Protocol Enoxaparin Sodium 40 mg 05/23/17 09:00 05/23/17 08:50 Lovenox SC 40 mg DAILY KATEY Administration Protocol Famotidine 20 mg 05/23/17 09:00 Pepcid IVP DAILY KATEY Gemfibrozil 600 mg 05/23/17 10:00 Lopid PO BID KATEY Glucagon 0 mg 05/23/17 09:07 Glucagen Diagnostic Kit IM STAT PRN Hypoglycemia Protocol Protocol Dextrose/Lactated Ringer's 1,000 mls @ 300 mls/hr 05/23/17 10:15 05/23/17 11: 15 Dextrose 5%/Lactated Ringer's IV 05/24/17 10:05 300 mls/hr .Q3H20M KATEY Administration Insulin Human Regular 100 101 mls @ 2.02 mls/hr 05/23/17 10:28 units/ Sodium Chloride IV .Q24H KATEY Protocol 2 UNITS/HR Morphine Sulfate 2 mg 05/22/17 17:18 Morphine IVP Q4 PRN Pain, moderate (4-7) Morphine Sulfate 4 mg 05/22/17 17:18 05/23/17 11:30 Morphine IVP 4 mg Q4 PRN Administration Pain, severe (8-10) Ondansetron HCl 4 mg 05/22/17 17:06 05/23/17 01:50 Zofran Inj IVP 4 mg Q6 PRN Administration Nausea/Vomiting - Patient Studies Lab Studies: Lab Studies 05/23/17 05/23/17 05/23/17 Range/Units 10:15 10:06 05:00 WBC (4.8-10.8) K/uL RBC (3.80-5.20) Mil/uL Hgb (12.0-16.0) g/dL Hct (34.0-47.0) % MCV (81.0-99.0) fl MCH (27.0-31.0) pg MCHC (33.0-37.0) g/dL RDW (11.5-14.5) % Plt Count (130-400) K/uL pO2 (30-55) mm/Hg VBG pH (7.32-7.43) VBG pCO2 (40-60) mmHg VBG HCO3 mmol/L VBG Total CO2 (22-28) mmol/L VBG O2 Sat (Calc) (40-65) % VBG Base Excess (0.0-2.0) mmol/L VBG Potassium (3.6-5.2) mmol/L Sodium 130 L (132-148) mmol/L Chloride 104 (98-107) mmol/L Glucose (65-105) mg/dL Lactate (0.7-2.1) mmol/L FiO2 % Potassium 3.4 L (3.6-5.0) MMOL/L Carbon Dioxide 20 L (22-30) mmol/L Anion Gap 9 L (10-20) BUN 5 L (7-17) mg/dl Creatinine 0.4 L (0.7-1.2) mg/dL Est GFR ( Amer) > 60 Est GFR (Non-Af Amer) > 60 POC Glucose (mg/dL) 91 (65-110) mg/dL Random Glucose 125 H (65-105) mg/dL Calcium 6.6 L (8.4-10.2) mg/dL Total Bilirubin 0.8 (0.2-1.3) mg/dl AST 18 (14-36) U/L ALT 24 (9-52) U/L Alkaline Phosphatase 54 (38-126) U/L Total Protein 6.3 (6.3-8.2) G/DL Albumin 3.1 L D (3.5-5.0) g/dL Globulin 3.2 (2.2-3.9) gm/dL Albumin/Globulin Ratio 1.0 (1.0-2.1) Triglycerides 588 H D (0-149) mg/DL Cholesterol (0-199) mg/dL LDL Cholesterol Direct (0-129) mg/dL HDL Cholesterol (30-70) MG/DL Venous Blood Potassium (3.6-5.2) mmol/L Alcohol, Quantitative (0-10) mg/dl 05/23/17 05/22/17 05/22/17 Range/Units 05:00 18:29 16:45 WBC 13.4 H (4.8-10.8) K/uL RBC 4.15 (3.80-5.20) Mil/uL Hgb 10.9 L D (12.0-16.0) g/dL Hct 33.1 L (34.0-47.0) % MCV 79.8 L (81.0-99.0) fl MCH 26.3 L (27.0-31.0) pg MCHC 32.9 L (33.0-37.0) g/dL RDW 15.1 H (11.5-14.5) % Plt Count 195 (130-400) K/uL pO2 48 (30-55) mm/Hg VBG pH 7.41 (7.32-7.43) VBG pCO2 38 L (40-60) mmHg VBG HCO3 24.2 mmol/L VBG Total CO2 25.3 (22-28) mmol/L VBG O2 Sat (Calc) 88.3 H (40-65) % VBG Base Excess -0.4 L (0.0-2.0) mmol/L VBG Potassium 3.3 L (3.6-5.2) mmol/L Sodium 131.0 L (132-148) mmol/L Chloride 103.0 (98-107) mmol/L Glucose 122 H (65-105) mg/dL Lactate 1.4 (0.7-2.1) mmol/L FiO2 21.0 % Potassium 5.4 H (3.6-5.0) MMOL/L Carbon Dioxide (22-30) mmol/L Anion Gap (10-20) BUN (7-17) mg/dl Creatinine (0.7-1.2) mg/dL Est GFR ( Amer) Est GFR (Non-Af Amer) POC Glucose (mg/dL) (65-110) mg/dL Random Glucose (65-105) mg/dL Calcium (8.4-10.2) mg/dL Total Bilirubin (0.2-1.3) mg/dl AST (14-36) U/L ALT (9-52) U/L Alkaline Phosphatase (38-126) U/L Total Protein (6.3-8.2) G/DL Albumin (3.5-5.0) g/dL Globulin (2.2-3.9) gm/dL Albumin/Globulin Ratio (1.0-2.1) Triglycerides 2103 H (0-149) mg/DL Cholesterol 261 H (0-199) mg/dL LDL Cholesterol Direct 33 (0-129) mg/dL HDL Cholesterol 17 L (30-70) MG/DL Venous Blood Potassium 3.3 L (3.6-5.2) mmol/L Alcohol, Quantitative < 10 (0-10) mg/dl Laboratory Results - last 24 hr 05/22/17 05/22/17 05/23/17 16:45 18:29 05:00 WBC 13.4 H RBC 4.15 Hgb 10.9 L D Hct 33.1 L MCV 79.8 L MCH 26.3 L MCHC 32.9 L RDW 15.1 H Plt Count 195 pO2 48 VBG pH 7.41 VBG pCO2 38 L VBG HCO3 24.2 VBG Total CO2 25.3 VBG O2 Sat (Calc) 88.3 H VBG Base Excess -0.4 L VBG Potassium 3.3 L Sodium 131.0 L Chloride 103.0 Glucose 122 H Lactate 1.4 FiO2 21.0 Potassium 5.4 H Carbon Dioxide Anion Gap BUN Creatinine Est GFR ( Amer) Est GFR (Non-Af Amer) POC Glucose (mg/dL) Random Glucose Calcium Total Bilirubin AST ALT Alkaline Phosphatase Total Protein Albumin Globulin Albumin/Globulin Ratio Triglycerides 2103 H Cholesterol 261 H LDL Cholesterol Direct 33 HDL Cholesterol 17 L Venous Blood Potassium 3.3 L Alcohol, Quantitative < 10 05/23/17 05/23/17 05/23/17 05:00 10:06 10:15 WBC RBC Hgb Hct MCV MCH MCHC RDW Plt Count pO2 VBG pH VBG pCO2 VBG HCO3 VBG Total CO2 VBG O2 Sat (Calc) VBG Base Excess VBG Potassium Sodium 130 L Chloride 104 Glucose Lactate FiO2 Potassium 3.4 L Carbon Dioxide 20 L Anion Gap 9 L BUN 5 L Creatinine 0.4 L Est GFR ( Amer) > 60 Est GFR (Non-Af Amer) > 60 POC Glucose (mg/dL) 91 Random Glucose 125 H Calcium 6.6 L Total Bilirubin 0.8 AST 18 ALT 24 Alkaline Phosphatase 54 Total Protein 6.3 Albumin 3.1 L D Globulin 3.2 Albumin/Globulin Ratio 1.0 Triglycerides 588 H D Cholesterol LDL Cholesterol Direct HDL Cholesterol Venous Blood Potassium Alcohol, Quantitative EKG/Cardiology Studies: Cardiology / EKG Studies 05/23/17 EKG [ELECTROCARDIOGRAM] Routine Comment: Mode Of Transportation: Reason For Exam: hypocalcemia Review of Systems - Review of Systems All systems: reviewed and no additional remarkable complaints except (as above.) Critical Care Progress Note - Nutrition Nutrition: Nutrition Category Date Time Status Liquid Diet [DIET] Diets 05/23/17 Lunch Active
[2017-05-23 19:01] LABS: CALCIUM 8.1 mg/dL (8.4-10.2); CARBON DIOXIDE 27 mmol/L (22-30); CHLORIDE 106 mmol/L (98-107); GFR AFRICAN-AMERICAN > 60; GLUCOSE,RANDOM 105 mg/dL (65-105); SODIUM 139 mmol/l (132-148)
[2017-05-23 19:02] LABS: BLOOD UREA NITROGEN 2 mg/dl (7-17)
[2017-05-23] MEDS: Lactated Ringer's 1,000 ML IV SCH (21:18)
--- NOTE | 2017-05-24 00:01 | CARD ---
APPROVED REPORT EKG Measurement Heart [id number] <Conclusion> Sinus tachycardia Otherwise normal ECG
--- NOTE | 2017-05-24 00:11 | CARD ---
APPROVED REPORT EKG Measurement Heart [id number] <Conclusion> Normal sinus rhythm Normal ECG
[2017-05-24] MEDS: Lactated Ringer's 1,000 ML IV SCH ×6 (01:06→22:05)
[2017-05-24 05:44] LABS: HEMATOCRIT 33.3 % (34.0-47.0); MEAN CELL VOLUME 80.7 fl (81.0-99.0); MEAN CORPUSCULAR HEMOGLOBIN 25.7 pg (27.0-31.0); MEAN CORPUSCULAR HGB CONC 31.8 g/dL (33.0-37.0); RED CELL DISTRIBUTION WIDTH 15.2 % (11.5-14.5); WHITE BLOOD COUNT 10.8 K/uL (4.8-10.8)
[2017-05-24 06:13] LABS: ALKALINE PHOSPHATASE 52 U/L (38-126); ALT/SGPT 25 U/L (9-52); AST/SGOT 17 U/L (14-36); BILIRUBIN,TOTAL 0.7 mg/dl (0.2-1.3); BLOOD UREA NITROGEN 3 mg/dl (7-17); CALCIUM 8.4 mg/dL (8.4-10.2); CARBON DIOXIDE 28 mmol/L (22-30); CHLORIDE 106 mmol/L (98-107); CHOLESTEROL 155 mg/dL (0-199); GFR AFRICAN-AMERICAN > 60; GLUCOSE,RANDOM 110 mg/dL (65-105); LIPASE 695 U/L (23-300); POTASSIUM 3.5 MMOL/L (3.6-5.0); SODIUM 139 mmol/l (132-148); TOTAL PROTEIN 6.2 G/DL (6.3-8.2)
[2017-05-24] MEDS ORDERED: Potassium Chloride 20 mEq ER Tab PO ONE (06:57)
--- NOTE | 2017-05-24 06:57 | CON ---
ENDOCRINOLOGY CONSULT LOCATION: [facility]U 431. HISTORY OF PRESENT ILLNESS: This is a 32-year-old female with significant history of dyslipidemia for the last 15 years, currently on fenofibrate and fish oil therapy as an outpatient, presented here with sudden onset of severe epigastric pain radiating to the left flank area with supervening vomiting episodes and is now being admitted for further workup and management and is also being referred for endocrine evaluation and management. PAST MEDICAL HISTORY: As mentioned above, history of dyslipidemia, specifically hypertriglyceridemia for the last 15 years and apparently discontinued her fish oil therapy and also her fenofibrate therapy as noted. FAMILY HISTORY: Positive for hypertension and heart disease. SOCIAL HISTORY: The patient has a supportive family. No known substance use. REVIEW OF SYSTEMS: As mentioned above, admits to generalized body weakness with episodic bouts of dizziness and lightheadedness, worse on the day of admission. No chest pains or palpitations or PNDs. She admits to sudden onset of epigastric pain radiating to the flank area with supervening nausea, dyspepsia and vomiting episodes as noted. PHYSICAL EXAMINATION GENERAL: This is an average-built female, in no apparent distress. VITAL SIGNS: Blood pressure of 140/80, pulse of 100 beats per minute and regular, temperature 98, respirations 20, height is 4 feet 10 inches, weight is 140 pounds. HEENT: Head normocephalic. Eyes anicteric with pink conjunctivae. Funduscopy was not possible at this time. Ears, nose, and throat otherwise normal. NECK: Supple. Thyroid gland is normal in size. No carotid bruits or cervical adenopathy. CARDIOPULMONARY: Adynamic precordium. S1 and S2 is rapid and regular. LUNGS: Clear to auscultation. ABDOMEN: Flat and soft with positive bowel sounds. EXTREMITIES: No peripheral edema. Pulses are +2 bilaterally. LABORATORY DATA: The WBC is 17.4, hemoglobin of 12.9, hematocrit of 35, MCV 80 and platelets 257. The chemistry showed the BUN initially of 10, sodium 134, potassium 5.5, chloride 103, CO2 of 20, glucose 107, and creatinine 0.4. Her calcium is 8.3, lipase is 3087, triglycerides of 2103, cholesterol is 261, HDL 17 and LDL 33. 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 PLAN OF MANAGEMENT: As discussed with the patient and staff, we will continue the n.p.o. 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 We will obtain a hemoglobin A1c to confirm her prior glycemic control and baseline thyroid function status will be ordered. We will obtain . We will obtain lipoprotein fractionation to confirm autoimmunity in the presence of a familial combined dyslipidemia process as noted. We will follow and advise accordingly. Sherrie Pozo MD
[2017-05-24] MEDS: Enoxaparin 40 mg Syringe SC SCH (08:15)
--- NOTE | 2017-05-24 08:32 | CP.PCM.PN ---
<Dianna Monet - Last Filed: 05/24/17 10:38> Subjective - Date & Time of Evaluation Date of Evaluation: 05/24/17 Time of Evaluation: 08:00 - Subjective Subjective: GI Fellow PGY4 Progress Note Pt seen and evaulated at bedside, pt doing well and tolerating clear liquids with no further abdominal pain. Pt's IV Insulin drip was stopped last night as triglyceride levels improved to <500. Pt is afebrile with no nausea or vomiting and agreeable to advancing diet today. ROS: A 12pt ROS was obtained and was negative except as above. Objective - Vital Signs/Intake and Output Vital Signs (last 24 hours): Temp Pulse Resp BP Pulse Ox 98.8 F 90 20 120/72 99 05/24/17 08:06 05/24/17 06:00 05/24/17 06:00 05/24/17 06:00 05/24/17 06:00 Intake and Output: 05/24/17 05/24/17 06:59 18:59 Intake Total 3921 Output Total 2300 Balance 1621 - Medications Medications: Current Medications Acetaminophen (Tylenol 650 Mg Supp) 650 mg NE Q6 PRN PRN Reason: Fever >100.4 F Enoxaparin Sodium (Lovenox) 40 mg SC DAILY [facility] PRN Reason: Protocol Last Admin: 05/24/17 08:15 Dose: 40 mg Famotidine (Pepcid) 20 mg IVP DAILY [facility] Last Admin: 05/24/17 08:18 Dose: 20 mg Gemfibrozil (Lopid) 600 mg PO BID [facility] Last Admin: 05/24/17 08:15 Dose: 600 mg Lactated Ringer's (Lactated Ringer's) 1,000 mls @ 300 mls/hr IV .Q3H20M [facility] Last Admin: 05/24/17 07:55 Dose: 300 mls/hr Morphine Sulfate (Morphine) 2 mg IVP Q4 PRN PRN Reason: Pain, moderate (4-7) Last Admin: 05/24/17 01:03 Dose: 2 mg Morphine Sulfate (Morphine) 4 mg IVP Q4 PRN PRN Reason: Pain, severe (8-10) Last Admin: 05/23/17 18:55 Dose: 4 mg Ondansetron HCl (Zofran Inj) 4 mg IVP Q6 PRN PRN Reason: Nausea/Vomiting Last Admin: 05/23/17 01:50 Dose: 4 mg - Labs Labs: 05/24/17 04:20 05/24/17 04:20 - Constitutional Appears: Well, No Acute Distress - Head Exam Head Exam: ATRAUMATIC, NORMAL INSPECTION, NORMOCEPHALIC - Eye Exam Eye Exam: EOMI, Normal appearance Pupil Exam: NORMAL ACCOMODATION, PERRL - ENT Exam ENT Exam: Mucous Membranes Moist, Normal Exam - Neck Exam Neck Exam: Full ROM, Normal Inspection - Respiratory Exam Respiratory Exam: Clear to Ausculation Bilateral, NORMAL BREATHING PATTERN - Cardiovascular Exam Cardiovascular Exam: REGULAR RHYTHM, RRR, +S1, +S2 - GI/Abdominal Exam GI & Abdominal Exam: Soft, Normal Bowel Sounds. absent: Tenderness, Organomegaly - Rectal Exam Rectal Exam: Deferred - Extremities Exam Extremities Exam: Full ROM, Normal Inspection - Back Exam Back Exam: NORMAL INSPECTION - Neurological Exam Neurological Exam: Alert, Awake, Oriented x3 - Psychiatric Exam Psychiatric exam: Normal Affect, Normal Mood - Skin Skin Exam: Dry, Intact, Normal Color, Warm Assessment and Plan - Assessment and Plan (Free Text) Assessment: This is a 32yF pw abdominal pain, nausea and vomiting. 1. Acute Pancreatitis induced by hypertriglyceridemia 2. Hypertriglyceridemia 3. Obesity 4. Dehydration 5. Hypokalemia 6. Transaminitis Plan: -Decrease IVF hydration with LR to 150cc/hr -BUN/HCT improving after fluid resuscitation, continue to monitor -Transaminitis improved, continue to monitor, no signs of gallstone induced pancreatitis -Advance to Low fat diet with mall frequent meals -Continue Gemfibrozil 600mg bid with triglyceride level at goal <500 at 291 -Replete electrolytes -Pt can be discharged today if able to tolerate food and continue Gemfibrozil 600mg daily and followup with Dr. Davila at [facility] in 4wks <Sanjana Davila MD - Last Filed: 05/24/17 19:35> Objective - Vital Signs/Intake and Output Vital Signs (last 24 hours): Temp Pulse Resp BP Pulse Ox 99.6 F 100 H 16 123/74 100 05/24/17 16:00 05/24/17 12:00 05/24/17 16:00 05/24/17 16:00 05/24/17 12:00 Intake and Output: 09/01/17 09/02/17 18:59 06:59 Intake Total 2280 Output Total 2850 Balance -570 - Medications Medications: Current Medications Acetaminophen (Tylenol 650 Mg Supp) 650 mg NE Q6 PRN PRN Reason: Fever >100.4 F Enoxaparin Sodium (Lovenox) 40 mg SC DAILY [facility] PRN Reason: Protocol Last Admin: 05/24/17 08:15 Dose: 40 mg Gemfibrozil (Lopid) 600 mg PO BID [facility] Last Admin: 05/24/17 08:15 Dose: 600 mg Lactated Ringer's (Lactated Ringer's) 1,000 mls @ 150 mls/hr IV .Q6H40M [facility] Last Admin: 05/24/17 14:21 Dose: 150 mls/hr Morphine Sulfate (Morphine) 2 mg IVP Q4 PRN PRN Reason: Pain, moderate (4-7) Last Admin: 05/24/17 01:03 Dose: 2 mg Morphine Sulfate (Morphine) 4 mg IVP Q4 PRN PRN Reason: Pain, severe (8-10) Last Admin: 05/23/17 18:55 Dose: 4 mg Ondansetron HCl (Zofran Inj) 4 mg IVP Q6 PRN PRN Reason: Nausea/Vomiting Last Admin: 05/23/17 01:50 Dose: 4 mg - Labs Labs: 05/24/17 04:20 05/24/17 04:20 Attending/Attestation - Attestation I have personally seen and examined this patient.: Yes I have fully participated in the care of the patient.: Yes I have reviewed all pertinent clinical information, including history, physical exam and plan: Yes Notes (Text): 05/24/17 19:32 Patient seen in MICU with GI fellow. This is a 32 yr old F admitted with acute pancreatitis which is uncomplicated due to hypertriglyceridemia. Symptoms have resolved. Diet as tolerated. Continue gemfibrozil with follow up in [facility]. Replete electrolytes.
--- NOTE | 2017-05-24 08:36 | CP.PCM.PN ---
Subjective - Date & Time of Evaluation Date of Evaluation: 05/24/17 Time of Evaluation: 07:10 - Subjective Subjective: Patient seen and examined in ICU this morning Pt being f/u for abdominal pain related to acute pancreatitis Insulin drip was stopped yesterday afebrile, VS stable WNL pt stable to be transfer to regular floor Objective - Vital Signs/Intake and Output Vital Signs (last 24 hours): Temp Pulse Resp BP Pulse Ox 98.8 F 90 20 120/72 99 05/24/17 08:06 05/24/17 06:00 05/24/17 06:00 05/24/17 06:00 05/24/17 06:00 Intake and Output: 05/24/17 05/24/17 06:59 18:59 Intake Total 3921 Output Total 2300 Balance 1621 - Medications Medications: Current Medications Acetaminophen (Tylenol 650 Mg Supp) 650 mg MO Q6 PRN PRN Reason: Fever >100.4 F Enoxaparin Sodium (Lovenox) 40 mg SC DAILY [facility] PRN Reason: Protocol Last Admin: 05/24/17 08:15 Dose: 40 mg Famotidine (Pepcid) 20 mg IVP DAILY [facility] Last Admin: 05/24/17 08:18 Dose: 20 mg Gemfibrozil (Lopid) 600 mg PO BID [facility] Last Admin: 05/24/17 08:15 Dose: 600 mg Lactated Ringer's (Lactated Ringer's) 1,000 mls @ 300 mls/hr IV .Q3H20M [facility] Last Admin: 05/24/17 07:55 Dose: 300 mls/hr Morphine Sulfate (Morphine) 2 mg IVP Q4 PRN PRN Reason: Pain, moderate (4-7) Last Admin: 05/24/17 01:03 Dose: 2 mg Morphine Sulfate (Morphine) 4 mg IVP Q4 PRN PRN Reason: Pain, severe (8-10) Last Admin: 05/23/17 18:55 Dose: 4 mg Ondansetron HCl (Zofran Inj) 4 mg IVP Q6 PRN PRN Reason: Nausea/Vomiting Last Admin: 05/23/17 01:50 Dose: 4 mg - Labs Labs: 05/24/17 04:20 05/24/17 04:20 - Constitutional Appears: No Acute Distress - ENT Exam ENT Exam: Mucous Membranes Moist - Respiratory Exam Respiratory Exam: Clear to Ausculation Bilateral, NORMAL BREATHING PATTERN - Cardiovascular Exam Cardiovascular Exam: REGULAR RHYTHM, +S1, +S2 - GI/Abdominal Exam GI & Abdominal Exam: Soft, Tenderness (mild tender to palpation of LUQ), Normal Bowel Sounds. absent: Distended, Rigid, Rebound Additional comments: mild discomfort to palpation of left abdomen, no tenderness to palpation - Extremities Exam Extremities Exam: Normal Inspection. absent: Calf Tenderness, Pedal Edema - Neurological Exam Neurological Exam: Alert, Awake, Oriented x3 Assessment and Plan - Assessment and Plan (Free Text) Assessment: 32 year old female with hypertriglyceidemia admitted for abdominal pain with PO intolerance likely 2' to acute pancreatitis. Plan: Acute pancreatitis 2/2 Hypertriglyceridemia improving s/p insulin drip, stopped yesterday transfer to [facility] tolerating liquid diet advance diet as tolerated c/w IV fluids c/w pain control f/u Triglycerides am Trig and lipase trending down today: 291/695 respectively GI on board, f/u recommendations Hypokalemia -Mild K+ today 3.5 Potassium 20 meq PO once f/u BMP Hypocalcemia resolved Ca 2+ today 8.4 DVT prophylaxis c/w lovenox 40 mg SC daily
--- NOTE | 2017-05-24 08:38 | CP.CCUPN ---
CCU Subjective - Physician Review Subjective (Free Text): Awake and alert, still has intermittent abdominal pain, no emesis. No fever spikes. ROS : as above, other 10+ system review with no other pertinent negs or positives. Other PMSFH: All Nursing and Physician documentation reviewed, and no new pertinent information relevant to current medical problems. MAJOR PROBLEMS: 1. Acute Pancreatitis 2. Hypertriglyceridemia 3. Hypocalcemia 4. NAFLD PLAN: 1. Stopped intensive Insulin therapy once TG levels fall below 500mg/dl. 2. Started PO Fibric acid derivatives as tolerated. 3. Add D5W to LR fluids. Continue aggressive hydration. 4. No abx yet. CCU Objective - Vital Signs / Intake & Output Vital Signs (Last 4 hours): Vital Signs Temp Pulse Resp BP Pulse Ox 05/24/17 08:06 98.8 F 05/24/17 06:00 90 20 120/72 99 05/24/17 05:00 79 18 110/81 97 Intake and Output (Last 8hrs): Intake & Output 05/23/17 05/24/17 05/24/17 22:59 06:59 14:59 Intake Total 2040 2721 Output Total 1750 1950 Balance 290 771 Intake: IV 1800 2481 Oral 240 240 Output: Urine 1750 1950 Urine, Voided 1750 1950 - Physical Exam Head: Positive for: Normocephalic Pupils: Positive for: PERRL Extroacular Muscles: Positive for: EOMI Conjunctiva: Positive for: Normal. Negative for: Icteric Mouth: Positive for: Moist Mucous Membranes Neck: Negative for: JVD Respiratory/Chest: Positive for: Clear to Auscultation. Negative for: Accessory Muscle Use Cardiovascular: Positive for: Regular Rate and Rhythm. Negative for: Murmurs, Rub Abdomen: Positive for: Normal Bowel Sounds. Negative for: Distention Lower Extremity: Positive for: NORMAL PULSES. Negative for: Edema, CALF TENDERNESS, Cyanosis Neurological: Positive for: GCS=15, CN II-XII Intact, Motor Func Grossly Intact Skin: Positive for: Warm. Negative for: Rashes - Medications Active Medications: Active Medications Generic Name Dose Route Start Last Admin Trade Name Freq PRN Reason Stop Dose Admin Acetaminophen 650 mg 05/22/17 17:06 Tylenol 650 Mg Supp MT Q6 PRN Fever >100.4 F Enoxaparin Sodium 40 mg 05/23/17 09:00 05/24/17 08:15 Lovenox SC 40 mg DAILY [facility] Administration Protocol Gemfibrozil 600 mg 05/23/17 10:00 05/24/17 08:15 Lopid PO 600 mg BID [facility] Administration Lactated Ringer's 1,000 mls @ 150 mls/hr 05/24/17 08:34 Lactated Ringer's IV .Q6H40M [facility] Morphine Sulfate 2 mg 05/22/17 17:18 05/24/17 01:03 Morphine IVP 2 mg Q4 PRN Administration Pain, moderate (4-7) Morphine Sulfate 4 mg 05/22/17 17:18 05/23/17 18:55 Morphine IVP 4 mg Q4 PRN Administration Pain, severe (8-10) Ondansetron HCl 4 mg 05/22/17 17:06 05/23/17 01:50 Zofran Inj IVP 4 mg Q6 PRN Administration Nausea/Vomiting - Patient Studies Lab Studies: Lab Studies 05/24/17 05/24/17 05/24/17 Range/Units 07:23 05:24 04:20 WBC (4.8-10.8) K/uL RBC (3.80-5.20) Mil/uL Hgb (12.0-16.0) g/dL Hct (34.0-47.0) % MCV (81.0-99.0) fl MCH (27.0-31.0) pg MCHC (33.0-37.0) g/dL RDW (11.5-14.5) % Plt Count (130-400) K/uL Sodium 139 (132-148) mmol/l Potassium 3.5 L (3.6-5.0) MMOL/L Chloride 106 (98-107) mmol/L Carbon Dioxide 28 (22-30) mmol/L Anion Gap 9 L (10-20) BUN 3 L (7-17) mg/dl Creatinine 0.5 L (0.7-1.2) mg/dL Est GFR ( Amer) > 60 Est GFR (Non-Af Amer) > 60 POC Glucose (mg/dL) 114 H 127 H (65-110) mg/dL Random Glucose 110 H (65-105) mg/dL Calcium 8.4 (8.4-10.2) mg/dL Magnesium (1.6-2.3) MG/DL Total Bilirubin 0.7 (0.2-1.3) mg/dl AST 17 (14-36) U/L ALT 25 (9-52) U/L Alkaline Phosphatase 52 (38-126) U/L Total Protein 6.2 L (6.3-8.2) G/DL Albumin 3.1 L (3.5-5.0) g/dL Globulin 3.1 (2.2-3.9) gm/dL Albumin/Globulin Ratio 1.0 (1.0-2.1) Triglycerides 291 H D (0-149) mg/DL Cholesterol 155 (0-199) mg/dL LDL Cholesterol Direct 31 (0-129) mg/dL HDL Cholesterol 24 L (30-70) MG/DL Lipase 695 H (23-300) U/L TSH 3rd Generation 1.30 (0.46-4.68) mIU/ML 05/24/17 05/24/17 05/24/17 Range/Units 04:20 02:37 01:11 WBC 10.8 (4.8-10.8) K/uL RBC 4.13 (3.80-5.20) Mil/uL Hgb 10.6 L (12.0-16.0) g/dL Hct 33.3 L (34.0-47.0) % MCV 80.7 L (81.0-99.0) fl MCH 25.7 L (27.0-31.0) pg MCHC 31.8 L (33.0-37.0) g/dL RDW 15.2 H (11.5-14.5) % Plt Count 205 (130-400) K/uL Sodium (132-148) mmol/l Potassium (3.6-5.0) MMOL/L Chloride (98-107) mmol/L Carbon Dioxide (22-30) mmol/L Anion Gap (10-20) BUN (7-17) mg/dl Creatinine (0.7-1.2) mg/dL Est GFR ( Amer) Est GFR (Non-Af Amer) POC Glucose (mg/dL) 135 H 122 H (65-110) mg/dL Random Glucose (65-105) mg/dL Calcium (8.4-10.2) mg/dL Magnesium (1.6-2.3) MG/DL Total Bilirubin (0.2-1.3) mg/dl AST (14-36) U/L ALT (9-52) U/L Alkaline Phosphatase (38-126) U/L Total Protein (6.3-8.2) G/DL Albumin (3.5-5.0) g/dL Globulin (2.2-3.9) gm/dL Albumin/Globulin Ratio (1.0-2.1) Triglycerides (0-149) mg/DL Cholesterol (0-199) mg/dL LDL Cholesterol Direct (0-129) mg/dL HDL Cholesterol (30-70) MG/DL Lipase (23-300) U/L TSH 3rd Generation (0.46-4.68) mIU/ML 05/24/17 05/23/17 05/23/17 Range/Units 00:15 21:52 20:55 WBC (4.8-10.8) K/uL RBC (3.80-5.20) Mil/uL Hgb (12.0-16.0) g/dL Hct (34.0-47.0) % MCV (81.0-99.0) fl MCH (27.0-31.0) pg MCHC (33.0-37.0) g/dL RDW (11.5-14.5) % Plt Count (130-400) K/uL Sodium (132-148) mmol/l Potassium (3.6-5.0) MMOL/L Chloride (98-107) mmol/L Carbon Dioxide (22-30) mmol/L Anion Gap (10-20) BUN (7-17) mg/dl Creatinine (0.7-1.2) mg/dL Est GFR ( Amer) Est GFR (Non-Af Amer) POC Glucose (mg/dL) 119 H 120 H 150 H (65-110) mg/dL Random Glucose (65-105) mg/dL Calcium (8.4-10.2) mg/dL Magnesium (1.6-2.3) MG/DL Total Bilirubin (0.2-1.3) mg/dl AST (14-36) U/L ALT (9-52) U/L Alkaline Phosphatase (38-126) U/L Total Protein (6.3-8.2) G/DL Albumin (3.5-5.0) g/dL Globulin (2.2-3.9) gm/dL Albumin/Globulin Ratio (1.0-2.1) Triglycerides (0-149) mg/DL Cholesterol (0-199) mg/dL LDL Cholesterol Direct (0-129) mg/dL HDL Cholesterol (30-70) MG/DL Lipase (23-300) U/L TSH 3rd Generation (0.46-4.68) mIU/ML 05/23/17 05/23/17 05/23/17 Range/Units 18:57 18:00 17:57 WBC (4.8-10.8) K/uL RBC (3.80-5.20) Mil/uL Hgb (12.0-16.0) g/dL Hct (34.0-47.0) % MCV (81.0-99.0) fl MCH (27.0-31.0) pg MCHC (33.0-37.0) g/dL RDW (11.5-14.5) % Plt Count (130-400) K/uL Sodium 139 (132-148) mmol/l Potassium 3.0 L (3.6-5.0) MMOL/L Chloride 106 (98-107) mmol/L Carbon Dioxide 27 (22-30) mmol/L Anion Gap 9 L (10-20) BUN 2 L (7-17) mg/dl Creatinine 0.5 L (0.7-1.2) mg/dL Est GFR ( Amer) > 60 Est GFR (Non-Af Amer) > 60 POC Glucose (mg/dL) 159 H 128 H (65-110) mg/dL Random Glucose 105 (65-105) mg/dL Calcium 8.1 L (8.4-10.2) mg/dL Magnesium (1.6-2.3) MG/DL Total Bilirubin (0.2-1.3) mg/dl AST (14-36) U/L ALT (9-52) U/L Alkaline Phosphatase (38-126) U/L Total Protein (6.3-8.2) G/DL Albumin (3.5-5.0) g/dL Globulin (2.2-3.9) gm/dL Albumin/Globulin Ratio (1.0-2.1) Triglycerides 411 H D (0-149) mg/DL Cholesterol (0-199) mg/dL LDL Cholesterol Direct (0-129) mg/dL HDL Cholesterol (30-70) MG/DL Lipase (23-300) U/L TSH 3rd Generation (0.46-4.68) mIU/ML 05/23/17 05/23/17 05/23/17 Range/Units 17:04 16:00 15:01 WBC (4.8-10.8) K/uL RBC (3.80-5.20) Mil/uL Hgb (12.0-16.0) g/dL Hct (34.0-47.0) % MCV (81.0-99.0) fl MCH (27.0-31.0) pg MCHC (33.0-37.0) g/dL RDW (11.5-14.5) % Plt Count (130-400) K/uL Sodium (132-148) mmol/l Potassium (3.6-5.0) MMOL/L Chloride (98-107) mmol/L Carbon Dioxide (22-30) mmol/L Anion Gap (10-20) BUN (7-17) mg/dl Creatinine (0.7-1.2) mg/dL Est GFR ( Amer) Est GFR (Non-Af Amer) POC Glucose (mg/dL) 130 H 121 H 120 H (65-110) mg/dL Random Glucose (65-105) mg/dL Calcium (8.4-10.2) mg/dL Magnesium (1.6-2.3) MG/DL Total Bilirubin (0.2-1.3) mg/dl AST (14-36) U/L ALT (9-52) U/L Alkaline Phosphatase (38-126) U/L Total Protein (6.3-8.2) G/DL Albumin (3.5-5.0) g/dL Globulin (2.2-3.9) gm/dL Albumin/Globulin Ratio (1.0-2.1) Triglycerides (0-149) mg/DL Cholesterol (0-199) mg/dL LDL Cholesterol Direct (0-129) mg/dL HDL Cholesterol (30-70) MG/DL Lipase (23-300) U/L TSH 3rd Generation (0.46-4.68) mIU/ML 05/23/17 05/23/17 05/23/17 Range/Units 14:03 13:02 12:05 WBC (4.8-10.8) K/uL RBC (3.80-5.20) Mil/uL Hgb (12.0-16.0) g/dL Hct (34.0-47.0) % MCV (81.0-99.0) fl MCH (27.0-31.0) pg MCHC (33.0-37.0) g/dL RDW (11.5-14.5) % Plt Count (130-400) K/uL Sodium (132-148) mmol/l Potassium (3.6-5.0) MMOL/L Chloride (98-107) mmol/L Carbon Dioxide (22-30) mmol/L Anion Gap (10-20) BUN (7-17) mg/dl Creatinine (0.7-1.2) mg/dL Est GFR ( Amer) Est GFR (Non-Af Amer) POC Glucose (mg/dL) 117 H 174 H 151 H (65-110) mg/dL Random Glucose (65-105) mg/dL Calcium (8.4-10.2) mg/dL Magnesium (1.6-2.3) MG/DL Total Bilirubin (0.2-1.3) mg/dl AST (14-36) U/L ALT (9-52) U/L Alkaline Phosphatase (38-126) U/L Total Protein (6.3-8.2) G/DL Albumin (3.5-5.0) g/dL Globulin (2.2-3.9) gm/dL Albumin/Globulin Ratio (1.0-2.1) Triglycerides (0-149) mg/DL Cholesterol (0-199) mg/dL LDL Cholesterol Direct (0-129) mg/dL HDL Cholesterol (30-70) MG/DL Lipase (23-300) U/L TSH 3rd Generation (0.46-4.68) mIU/ML 05/23/17 05/23/17 05/23/17 Range/Units 10:15 10:15 10:06 WBC (4.8-10.8) K/uL RBC (3.80-5.20) Mil/uL Hgb (12.0-16.0) g/dL Hct (34.0-47.0) % MCV (81.0-99.0) fl MCH (27.0-31.0) pg MCHC (33.0-37.0) g/dL RDW (11.5-14.5) % Plt Count (130-400) K/uL Sodium (132-148) mmol/l Potassium (3.6-5.0) MMOL/L Chloride (98-107) mmol/L Carbon Dioxide (22-30) mmol/L Anion Gap (10-20) BUN (7-17) mg/dl Creatinine (0.7-1.2) mg/dL Est GFR ( Amer) Est GFR (Non-Af Amer) POC Glucose (mg/dL) 91 (65-110) mg/dL Random Glucose (65-105) mg/dL Calcium (8.4-10.2) mg/dL Magnesium 1.5 L (1.6-2.3) MG/DL Total Bilirubin (0.2-1.3) mg/dl AST (14-36) U/L ALT (9-52) U/L Alkaline Phosphatase (38-126) U/L Total Protein (6.3-8.2) G/DL Albumin (3.5-5.0) g/dL Globulin (2.2-3.9) gm/dL Albumin/Globulin Ratio (1.0-2.1) Triglycerides 588 H D (0-149) mg/DL Cholesterol (0-199) mg/dL LDL Cholesterol Direct (0-129) mg/dL HDL Cholesterol (30-70) MG/DL Lipase (23-300) U/L TSH 3rd Generation (0.46-4.68) mIU/ML Laboratory Results - last 24 hr 05/23/17 05/23/17 05/23/17 10:06 10:15 10:15 WBC RBC Hgb Hct MCV MCH MCHC RDW Plt Count Sodium Potassium Chloride Carbon Dioxide Anion Gap BUN Creatinine Est GFR ( Amer) Est GFR (Non-Af Amer) POC Glucose (mg/dL) 91 Random Glucose Calcium Magnesium 1.5 L Total Bilirubin AST ALT Alkaline Phosphatase Total Protein Albumin Globulin Albumin/Globulin Ratio Triglycerides 588 H D Cholesterol LDL Cholesterol Direct HDL Cholesterol Lipase TSH 3rd Generation 05/23/17 05/23/17 05/23/17 12:05 13:02 14:03 WBC RBC Hgb Hct MCV MCH MCHC RDW Plt Count Sodium Potassium Chloride Carbon Dioxide Anion Gap BUN Creatinine Est GFR ( Amer) Est GFR (Non-Af Amer) POC Glucose (mg/dL) 151 H 174 H 117 H Random Glucose Calcium Magnesium Total Bilirubin AST ALT Alkaline Phosphatase Total Protein Albumin Globulin Albumin/Globulin Ratio Triglycerides Cholesterol LDL Cholesterol Direct HDL Cholesterol Lipase TSH 3rd Generation 05/23/17 05/23/17 05/23/17 15:01 16:00 17:04 WBC RBC Hgb Hct MCV MCH MCHC RDW Plt Count Sodium Potassium Chloride Carbon Dioxide Anion Gap BUN Creatinine Est GFR ( Amer) Est GFR (Non-Af Amer) POC Glucose (mg/dL) 120 H 121 H 130 H Random Glucose Calcium Magnesium Total Bilirubin AST ALT Alkaline Phosphatase Total Protein Albumin Globulin Albumin/Globulin Ratio Triglycerides Cholesterol LDL Cholesterol Direct HDL Cholesterol Lipase TSH 3rd Generation 05/23/17 05/23/17 05/23/17 17:57 18:00 18:57 WBC RBC Hgb Hct MCV MCH MCHC RDW Plt Count Sodium 139 Potassium 3.0 L Chloride 106 Carbon Dioxide 27 Anion Gap 9 L BUN 2 L Creatinine 0.5 L Est GFR ( Amer) > 60 Est GFR (Non-Af Amer) > 60 POC Glucose (mg/dL) 128 H 159 H Random Glucose 105 Calcium 8.1 L Magnesium Total Bilirubin AST ALT Alkaline Phosphatase Total Protein Albumin Globulin Albumin/Globulin Ratio Triglycerides 411 H D Cholesterol LDL Cholesterol Direct HDL Cholesterol Lipase TSH 3rd Generation 05/23/17 05/23/17 05/24/17 20:55 21:52 00:15 WBC RBC Hgb Hct MCV MCH MCHC RDW Plt Count Sodium Potassium Chloride Carbon Dioxide Anion Gap BUN Creatinine Est GFR ( Amer) Est GFR (Non-Af Amer) POC Glucose (mg/dL) 150 H 120 H 119 H Random Glucose Calcium Magnesium Total Bilirubin AST ALT Alkaline Phosphatase Total Protein Albumin Globulin Albumin/Globulin Ratio Triglycerides Cholesterol LDL Cholesterol Direct HDL Cholesterol Lipase TSH 3rd Generation 05/24/17 05/24/17 05/24/17 01:11 02:37 04:20 WBC 10.8 RBC 4.13 Hgb 10.6 L Hct 33.3 L MCV 80.7 L MCH 25.7 L MCHC 31.8 L RDW 15.2 H Plt Count 205 Sodium Potassium Chloride Carbon Dioxide Anion Gap BUN Creatinine Est GFR ( Amer) Est GFR (Non-Af Amer) POC Glucose (mg/dL) 122 H 135 H Random Glucose Calcium Magnesium Total Bilirubin AST ALT Alkaline Phosphatase Total Protein Albumin Globulin Albumin/Globulin Ratio Triglycerides Cholesterol LDL Cholesterol Direct HDL Cholesterol Lipase TSH 3rd Generation 05/24/17 05/24/17 05/24/17 04:20 05:24 07:23 WBC RBC Hgb Hct MCV MCH MCHC RDW Plt Count Sodium 139 Potassium 3.5 L Chloride 106 Carbon Dioxide 28 Anion Gap 9 L BUN 3 L Creatinine 0.5 L Est GFR ( Amer) > 60 Est GFR (Non-Af Amer) > 60 POC Glucose (mg/dL) 127 H 114 H Random Glucose 110 H Calcium 8.4 Magnesium Total Bilirubin 0.7 AST 17 ALT 25 Alkaline Phosphatase 52 Total Protein 6.2 L Albumin 3.1 L Globulin 3.1 Albumin/Globulin Ratio 1.0 Triglycerides 291 H D Cholesterol 155 LDL Cholesterol Direct 31 HDL Cholesterol 24 L Lipase 695 H TSH 3rd Generation 1.30 Fingerstick Blood Sugar Results: 108 Review of Systems - Review of Systems All systems: reviewed and no additional remarkable complaints except (as above) Critical Care Progress Note - Nutrition Nutrition: Nutrition Category Date Time Status Altered GI/Hepatic Diet [DIET] Diets 05/24/17 Lunch Active Liquid Diet [DIET] Diets 05/24/17 Breakfast Active
[2017-05-24 20:45] VITALS: RESP 18
[2017-05-25] MEDS: Lactated Ringer's 1,000 ML IV SCH ×2 (05:00→11:28)
[2017-05-25 07:36] VITALS: BP 106/67; PULSE 90; TEMP 98.4; O2SAT 99
[2017-05-25 08:12] LABS: BLOOD UREA NITROGEN 7 mg/dl (7-17); CALCIUM 9.1 mg/dL (8.4-10.2); CARBON DIOXIDE 24 mmol/L (22-30); CHLORIDE 107 mmol/L (98-107); GFR AFRICAN-AMERICAN > 60; GLUCOSE,RANDOM 104 mg/dL (65-105); POTASSIUM 4.2 MMOL/L (3.6-5.0); SODIUM 140 mmol/l (132-148)
[2017-05-25] MEDS: Enoxaparin 40 mg Syringe SC SCH (09:35)
--- NOTE | 2017-05-25 14:14 | PN ---
DATE: ENDO FOLLOWUP NOTE LOCATION: Room 431. SUBJECTIVE: This is a 32-year-old female with recent acute pancreatitis on the background of chronic recurrent pancreatitis with underlying severe dyslipidemia and is now being followed closely for metabolic management. She received an insulin drip infusion for management of marked hypertriglyceridemia as noted. She has been taken off the insulin drip at this time. LABORATORY DATA: The latest chemistry shows a BUN of 7, sodium 140, potassium 4.2, chloride 107, CO2 of 24, glucose 104, and creatinine 0.5. The latest triglyceride levels are 276 as noted. PLAN: So, at this time, we will restart her fenofibrate medication and upon review of her medication list, she was actually placed on Lopid given as 600 mg b.i.d. as ordered. We would also recommend restarting of her fish oil at a double dose of two caps b.i.d. of 1000 mg capsule daily. We would obtain serial chemistries and supplement accordingly as needed. We are waiting also the reports of the lipoprotein fractionation, which will determine whether we are dealing with a so called familial combined dyslipidemia. We would sign off from the medical care of the patient. Sherrie Pozo MD
--- NOTE | 2017-05-25 15:45 | CP.PCM.DIS ---
Provider - Provider Date of Admission: 05/22/17 16:34 Attending physician: Suzanna Pascual MD Consults: Endocrinology, Dr. Sánchez SOUTH, Dr. Davila Time Spent in preparation of Discharge (in minutes): 30 Diagnosis - Discharge Diagnosis (1) Acute pancreatitis Status: Acute Comment: most likely 2/2 Hypertriglyceridemia. Improved. (2) Hypertriglyceridemia Status: Acute Priority: High Comment: improving. C/W Gemfibrozil and Glade 3 Fatty acids/fish oil. f/u with PMD. (3) Hypokalemia Status: Acute Comment: resolved (4) Hypocalcemia Status: Acute Comment: resolved Hospital Course - Lab Results Lab Results: Micro Results 05/23/17 11:55 Naris MRSA Culture (Admit) - Final MRSA NOT DETECTED Most Recent Lab Values WBC 10.8 K/uL (4.8-10.8) 05/24/17 04:20 RBC 4.13 Mil/uL (3.80-5.20) 05/24/17 04:20 Hgb 10.6 g/dL (12.0-16.0) L 05/24/17 04:20 Hct 33.3 % (34.0-47.0) L 05/24/17 04:20 MCV 80.7 fl (81.0-99.0) L 05/24/17 04:20 MCH 25.7 pg (27.0-31.0) L 05/24/17 04:20 MCHC 31.8 g/dL (33.0-37.0) L 05/24/17 04:20 RDW 15.2 % (11.5-14.5) H 05/24/17 04:20 Plt Count 205 K/uL (130-400) 05/24/17 04:20 MPV 11.6 fl (7.2-11.7) 05/22/17 14:30 Neut % (Auto) 85.5 % (50.0-75.0) H 05/22/17 14:30 Lymph % (Auto) 9.1 % (20.0-40.0) L 05/22/17 14:30 Hawkins % (Auto) 4.4 % (0.0-10.0) 05/22/17 14:30 Eos % (Auto) 0.5 % (0.0-4.0) 05/22/17 14:30 Baso % (Auto) 0.5 % (0.0-2.0) 05/22/17 14:30 Neut # 14.9 K/uL (1.8-7.0) H 05/22/17 14:30 Lymph # 1.6 K/uL (1.0-4.3) 05/22/17 14:30 Hawkins # 0.8 K/uL (0.0-0.8) 05/22/17 14:30 Eos # 0.1 K/uL (0.0-0.7) 05/22/17 14:30 Baso # 0.1 K/uL (0.0-0.2) 05/22/17 14:30 Neutrophils % (Manual) 84 % (42-75) H 05/22/17 14:30 Band Neutrophils % 1 % (0-2) 05/22/17 14:30 Lymphocytes % (Manual) 8 % (20-50) L 05/22/17 14:30 Monocytes % (Manual) 6 % (0-10) 05/22/17 14:30 Eosinophils % (Manual) 1 % (0-7) 05/22/17 14:30 Platelet Estimate Normal (NORMAL) 05/22/17 14:30 Hypochromasia (manual) Slight 05/22/17 14:30 Anisocytosis (manual) Slight 05/22/17 14:30 Microcytosis (manual) Slight 05/22/17 14:30 pO2 48 mm/Hg (30-55) 05/22/17 18:29 VBG pH 7.41 (7.32-7.43) 05/22/17 18:29 VBG pCO2 38 mmHg (40-60) L 05/22/17 18:29 VBG HCO3 24.2 mmol/L 05/22/17 18:29 VBG Total CO2 25.3 mmol/L (22-28) 05/22/17 18:29 VBG O2 Sat (Calc) 88.3 % (40-65) H 05/22/17 18:29 VBG Base Excess -0.4 mmol/L (0.0-2.0) L 05/22/17 18:29 VBG Potassium 3.3 mmol/L (3.6-5.2) L 05/22/17 18:29 Sodium 131.0 mmol/L (132-148) L 05/22/17 18:29 Chloride 103.0 mmol/L (98-107) 05/22/17 18:29 Glucose 122 mg/dL (65-105) H 05/22/17 18:29 Lactate 1.4 mmol/L (0.7-2.1) 05/22/17 18:29 FiO2 21.0 % 05/22/17 18:29 Sodium 140 mmol/l (132-148) 05/25/17 05:30 Potassium 4.2 MMOL/L (3.6-5.0) 05/25/17 05:30 Chloride 107 mmol/L (98-107) 05/25/17 05:30 Carbon Dioxide 24 mmol/L (22-30) 05/25/17 05:30 Anion Gap 14 (10-20) 05/25/17 05:30 BUN 7 mg/dl (7-17) 05/25/17 05:30 Creatinine 0.5 mg/dL (0.7-1.2) L 05/25/17 05:30 Est GFR ( Amer) > 60 05/25/17 05:30 Est GFR (Non-Af Amer) > 60 05/25/17 05:30 POC Glucose (mg/dL) 110 mg/dL (65-110) 05/25/17 10:26 Random Glucose 104 mg/dL (65-105) 05/25/17 05:30 Hemoglobin A1c 5.8 % (4.2-6.5) 05/24/17 04:20 Calcium 9.1 mg/dL (8.4-10.2) 05/25/17 05:30 Magnesium 1.5 MG/DL (1.6-2.3) L 05/23/17 10:15 Total Bilirubin 0.7 mg/dl (0.2-1.3) 05/24/17 04:20 AST 17 U/L (14-36) 05/24/17 04:20 ALT 25 U/L (9-52) 05/24/17 04:20 Alkaline Phosphatase 52 U/L (38-126) 05/24/17 04:20 Total Protein 6.2 G/DL (6.3-8.2) L 05/24/17 04:20 Albumin 3.1 g/dL (3.5-5.0) L 05/24/17 04:20 Globulin 3.1 gm/dL (2.2-3.9) 05/24/17 04:20 Albumin/Globulin Ratio 1.0 (1.0-2.1) 05/24/17 04:20 Triglycerides 276 mg/DL (0-149) H 05/25/17 06:00 Cholesterol 155 mg/dL (0-199) 05/24/17 04:20 LDL Cholesterol Direct 31 mg/dL (0-129) 05/24/17 04:20 HDL Cholesterol 24 MG/DL (30-70) L 05/24/17 04:20 Lipase 695 U/L (23-300) H 05/24/17 04:20 TSH 3rd Generation 1.30 mIU/ML (0.46-4.68) 05/24/17 04:20 Venous Blood Potassium 3.3 mmol/L (3.6-5.2) L 05/22/17 18:29 Alcohol, Quantitative < 10 mg/dl (0-10) 05/22/17 16:45 - Hospital Course Hospital Course: 32 year old female with hypertriglyceidemia admitted for management of acute pancreatitis. During admission patient was afebrile, had leukocytosis of 17.4 which resolved, had elevated lipase (>3000)which improved with medical management, and triglycerides (> 2100), which improved to 276. During admission patient was managed with NPO, IV fluids, insulin drip, antiemetics. Patient was admitted in ICU for close monitoring of insulin drip as recommended for Dr. Pozo, rug cleaner. Also GI consulted during admission, who recommended f/u as outpatient with PMD. Diet was advance as tolerated, and since yesterday patient has been able to tolerate GI recommended diet. Patient was re-started on Gemfibrozil and Glade 3/fatty acids/fish oil and she will be discharged in these 2 medications, prescriptions given. Patient seen and examined this morning and afternoon. She feels well, and denies Cp, SOB, N/V, abdominal pain. Patient has an appointment with PMD, Dr. oJ at [facility] on 09/08. Will f/u lipoprotein fraction to determine possible cause of hypertriglyceridemia ( familial combined dyslipidemia). Home medication Gemfibrozil 600 mg PO BID Glade 3 /Fatty acid/fish oil 1000 mg 2 caps BID - Date & Time of H&P Date of H&P: 05/22/17 Time of H&P: 17:10 Discharge Exam - Head Exam Head Exam: ATRAUMATIC, NORMAL INSPECTION, NORMOCEPHALIC - Additional Findings Additional findings: Constitutional Appears: No Acute Distress - ENT Exam ENT Exam: Mucous Membranes Moist - Respiratory Exam Respiratory Exam: Clear to Ausculation Bilateral, NORMAL BREATHING PATTERN - Cardiovascular Exam Cardiovascular Exam: REGULAR RHYTHM, +S1, +S2 - GI/Abdominal Exam GI & Abdominal Exam: Soft, Tenderness (mild tender to palpation of LUQ), Normal Bowel Sounds. absent: Distended, Rigid, Rebound Additional comments: mild discomfort to palpation of left upper quadrant, no tenderness to palpation , no guarding or rigidity - Extremities Exam Extremities Exam: Normal Inspection. absent: Calf Tenderness, Pedal Edema - Neurological Exam Neurological Exam: Alert, Awake, Oriented x3 Discharge Plan - Discharge Medications Prescriptions: Gemfibrozil [Lopid] 600 mg PO BID #60 tab - Follow Up Plan Condition: GOOD Disposition: HOME/ ROUTINE Patient education suggested?: Yes Instructions: Pancreatitis (DC), Low Fat Diet (DC), Hyperlipidemia (DC) Additional Instructions: F/u with PMD at [facility] on 06/04/17 ER precautions given
--- NOTE | 2017-05-28 08:22 | PN ---
LOCATION: Room 431, ICU. This is a 32-year-old female with marked hypertriglyceridemia, presenting here with chronic recurrent pancreatitis and now with diffuse abdominal pain and currently on n.p.o. status at this time and receiving intensive insulin therapy with an insulin drip infusion for management of the aforementioned. Her latest glucose values have ranged from 104 to 114 and 127 mg/dL. The latest chemistry shows a BUN of 3, sodium 139, potassium 3.5, chloride 106, CO2 of 28, glucose 110, and creatinine 0.5. Her triglyceride levels are down to 291 from over 1999, and lipase is down to 695. So at this time, we will continue the aforementioned insulin drip infusion for management of marked dyslipidemia since there is an inhibition of the lipoprotein lipase enzymes, which can be prompted by giving insulin therapy, thus the improvement of the marked dyslipidemia as mentioned. As the lipase levels decline, then may eventually switch her over to a soft diet as tolerated. We will also consider additional fenofibrate and omega-3 fatty acids once oral intake is resumed accordingly. We will follow. We will continue also vigorous IV hydration as ordered and obtain serial chemistries accordingly. Sherrie Pozo MD
[2017-06-01 14:28] LABS: HDL CHOLESTEROL 21 mg/dL (> OR = 46); LDL CHOLESTEROL DIRECT 58 mg/dL; VLDL 74 mg/dL
== END 2017-05-25 14:26 | disposition home or self-care (01) | DRG 204 ==
LOC: H.ER 12:20 → H.ERHOLD 16:34 → H.TEL 22:00 → H.ICU/CCU 05-23 11:01 → H.MEDSURG1 05-24 21:57
PROVIDERS: ADMIT Family Medicine; ATTEND Family Medicine
DX: K85.90 Acute pancreatitis without necrosis or infection, unspecified (principal); E83.51 Hypocalcemia; I10 Essential (primary) hypertension; E86.0 Dehydration; E87.6 Hypokalemia; E87.1 Hypo-osmolality and hyponatremia; E78.1 Pure hyperglyceridemia; E78.5 Hyperlipidemia, unspecified; E66.9 Obesity, unspecified; Z68.29 Body mass index [BMI] 29.0-29.9, adult